=== PATIENT | male | born 1955 | race Caucasian/White ===

== ENCOUNTER 2018-01-08 09:32 | Outpatient (CLI) | payer MEDICARE, MEDICAID ==
[~2018-01-08 09:32] MED LIST: FLUT16SP20 BOTHNARES; GUAI600T45 PO
== END 2018-01-08 23:59 | disposition home or self-care (01) ==
LOC: RAD 09:32
PROVIDERS: ATTEND Student in an Organized Health Care Education/Training Program
DX: H49.21 Sixth [abducent] nerve palsy, right eye (principal)
CPT/HCPCS: 70551

== ENCOUNTER 2018-01-13 08:29 | Outpatient (CLI) | payer MEDICARE, MEDICAID | END 2018-01-13 23:59 | disposition home or self-care (01) | LOC: RAD 08:29 | PROVIDERS: ATTEND Student in an Organized Health Care Education/Training Program | DX: H49.20 Sixth [abducent] nerve palsy, unspecified eye (principal) ==

== ENCOUNTER 2018-01-16 08:19 | Outpatient (CLI) | payer MEDICARE, MEDICAID ==
[2018-01-16 09:00] LABS: ALANINE AMINOTRANSFERASE 19 U/L (12-78); ALBUMIN 3.7 G/DL (3.4-5.0); ALBUMIN/GLOBULIN RATIO 0.9 (1.1-1.5); ALKALINE PHOSPHATASE 80 IU/L (46-116); ANION GAP 7 (8-16); ASPARTATE AMINO TRANSFERASE 17 U/L (10-37); BILIRUBIN,TOTAL 0.3 MG/DL (0.1-1.0); BLOOD UREA NITROGEN 21 MG/DL (7-18); BUN/CREATININE RATIO 18.3 (5.4-32.0); CALCIUM 9.6 MG/DL (8.5-10.1); CHLORIDE 109 MMOL/L (99-107); CREATININE 1.15 MG/DL (0.60-1.10); GLUCOSE 158 MG/DL (70-104); POTASSIUM 4.5 MMOL/L (3.5-5.1); SODIUM 142 MMOL/L (135-145); TOTAL CARBON DIOXIDE 26.5 MMOL/L (24-32); eGFR 64 ML/MIN
[2018-01-16] MEDS ORDERED: gadopentetate dimeglumine 7.5 MMOL/15 ML syringe ONE (10:35)
== END 2018-01-16 23:59 | disposition home or self-care (01) ==
LOC: RAD 08:19
PROVIDERS: ATTEND Student in an Organized Health Care Education/Training Program
DX: H49.21 Sixth [abducent] nerve palsy, right eye (principal); I10 Essential (primary) hypertension
CPT/HCPCS: 36415; 70553; 80053; A9579

== ENCOUNTER 2018-03-27 08:37 | Emergency (ER) | payer MEDICARE, MEDICAID ==
[~2018-03-27] VITALS: Ht 188 cm; Wt 113.0 kg
[2018-03-27] MEDS ORDERED: acetaminophen 325mg tablet PO ONE (08:45)
[2018-03-27 10:10] VITALS: BP 140/86
== END 2018-03-27 10:08 | disposition home or self-care (01) ==
LOC: ER 08:37
DX: M25.552 Pain in left hip (principal); G89.29 Other chronic pain; Z79.899 Other long term (current) drug therapy; W18.39XA Other fall on same level, initial encounter; Y93.89 Activity, other specified; Y92.89 Other specified places as the place of occurrence of the external cause; Y99.8 Other external cause status
CPT/HCPCS: 73502; 82948; 99284

== ENCOUNTER 2018-04-19 20:20 | Emergency (ER) | payer MEDICARE, MEDICAID ==
[~2018-04-19] VITALS: Ht 185.4 cm; Wt 101.0 kg
[2018-04-19 20:28] VITALS: BP 166/94
[2018-04-19 22:07] LABS: CLARITY,URINE CLOUDY (Clear); COLOR,URINE YELLOW (Yellow); GLUCOSE, URINE NEGATIVE (Neg); KETONES,URINE NEGATIVE (Neg); LEUKOCYTE ESTERASE ,URINE LARGE (Neg); NITRITES, URINE NEGATIVE (Neg); OCCULT BLOOD,URINE TRACE-INTACT (Neg); PH,URINE 6.5 (4.8-8.0); PROTEIN,URINE 30 mg/dl (Neg); UROBILINOGEN,URINE 0.2 E.U/dL (0.2-1.0)
[2018-04-19 22:09] LABS: UA COLLECTION TYPE CLN CATCH MIDSTREAM
[2018-04-19 22:18] LABS: BACTERIA,URINE 3+ /HPF (Neg); MUCUS STRANDS NONE SEEN /LPF (Neg); RBC,URINE 0-2 /HPF (0-2); SQUAMOUS EPITHELIAL CELL,UR FEW /LPF (FEW); WBC,URINE 30-50 /HPF (0-4)
[2018-04-19] MEDS ORDERED: CEPH-572 PO (23:00)
== END 2018-04-19 22:14 | disposition home or self-care (01) ==
LOC: ER 20:21
DX: N39.0 Urinary tract infection, site not specified (principal); N35.9 Urethral stricture, unspecified; G89.29 Other chronic pain; Z88.8 Allergy status to other drugs, medicaments and biological substances; Z79.899 Other long term (current) drug therapy
CPT/HCPCS: 36415; 72170; 81001; 87077; 87088; 87186; 87491; 99285

== ENCOUNTER 2020-06-20 12:51 | Outpatient (CLI) | payer MEDICARE, MEDICAID | END 2020-06-20 23:59 | disposition home or self-care (01) | LOC: VAS 12:51 | PROVIDERS: ATTEND Nurse Practitioner | DX: M79.604 Pain in right leg (principal); R59.0 Localized enlarged lymph nodes | CPT/HCPCS: 93971 ==

== ENCOUNTER 2021-06-22 21:54 | Inpatient (IN) | payer MEDICARE, MEDICAID ==
[~2021-06-22] VITALS: Ht 188 cm; Wt 113.6 kg
[2021-06-22] MEDS ORDERED: normal saline 1000ML IV soln IVB ONE (22:25)
[2021-06-22 22:58] LABS: BASOPHILS # (AUTO) 0.1 X10'3 (0-0.2); BASOPHILS % (AUTO) 0.3 % (0-1); EOSINOPHILS % (AUTO) 0 % (0-6); HEMOGLOBIN 13.1 g/dl (14.0-17.9); LYMPHOCYTES # (AUTO) 0.4 X10'3 (1.1-4.8); LYMPHOCYTES % (AUTO) 2.1 % (21-51); MEAN CORPUSCULAR HGB CONC 33.6 g/dL (33.0-36.5); MEAN CORPUSCULAR VOLUME 86.3 FL (78-98); MONOCYTES # (AUTO) 1.4 X10'3 (0-0.9); MONOCYTES % (AUTO) 7.1 % (2-12); NEUTROPHILS # (AUTO) 18.4 X10'3 (1.8-7.7); NEUTROPHILS % (AUTO) 90.5 % (42-75); PLATELET COUNT 271 X10'3 (140-440); RED BLOOD COUNT 4.52 X10'6 (4.70-6.10); RED CELL DISTRIBUTION WIDTH 14.5 % (11.5-14.5); WHITE BLOOD COUNT 20.3 X10'3 (4.5-11.0)
[2021-06-22 23:10] LABS: AMMONIA < 10 UMOL/L (11-32)
[2021-06-22 23:15] LABS: LACTIC SEPSIS 2.2 MMOL/L (0.4-2.0)
[2021-06-22 23:28] LABS: ALANINE AMINOTRANSFERASE 21 U/L (12-78); ALBUMIN 2.6 G/DL (3.4-5.0); ALBUMIN/GLOBULIN RATIO 0.5 (1.1-1.5); ALKALINE PHOSPHATASE 126 IU/L (46-116); ANION GAP 12 (8-16); ASPARTATE AMINO TRANSFERASE 17 U/L (10-37); BILIRUBIN,TOTAL 0.7 MG/DL (0.1-1.0); BLOOD UREA NITROGEN 47 MG/DL (7-18); BUN/CREATININE RATIO 23.2 (5.4-32.0); CALCIUM 10.1 MG/DL (8.5-10.1); CHLORIDE 96 MMOL/L (99-107); CREATININE 2.03 MG/DL (0.60-1.10); GLUCOSE 449 MG/DL (70-104); SODIUM 129 MMOL/L (135-145); TOTAL CARBON DIOXIDE 21.1 MMOL/L (24-32); TOTAL PROTEIN 8.1 G/DL (6.4-8.2); eGFR 33 ML/MIN
[2021-06-22 23:31] LABS: ETHANOL < 0.010 GM/DL (0.0-0.010); TROPONIN I < 0.04 NG/ML (0.0-0.05)
[2021-06-22 23:50] LABS: CLARITY,URINE CLOUDY (Clear); COLOR,URINE YELLOW (Yellow); GLUCOSE, URINE >=1000 mg/dl (Neg); KETONES,URINE NEGATIVE (Neg); LEUKOCYTE ESTERASE ,URINE MODERATE (Neg); NITRITES, URINE NEGATIVE (Neg); OCCULT BLOOD,URINE MODERATE (Neg); PROTEIN,URINE 100 mg/dl (Neg); UROBILINOGEN,URINE 0.2 E.U/dL (0.2-1.0)
[2021-06-22 23:54] LABS: UA COLLECTION TYPE URINAL
[2021-06-23 00:04] LABS: BACTERIA,URINE 2+ /HPF (Neg); MUCUS STRANDS MODERATE /LPF (Neg); SQUAMOUS EPITHELIAL CELL,UR MODERATE /LPF (FEW)
--- NOTE | 2021-06-23 01:26 | NUR ---
pt moved from Bed 3 to hallway 16 and now to Bed 8. Remains pleasantly confused. 2 liters ns infused. vss. Pt with no compaints.
[2021-06-23] MEDS ORDERED: UNABLE TO OBTAIN (01:52)
--- NOTE | 2021-06-23 01:52 | NUR ---
3 hr trop drawn. pt voidingin urinal 400 cc's. temp 100.6
--- NOTE | 2021-06-23 02:11 | NUR ---
pt had episode of stool incontinence (medium soft formed brown). Pt cleaned and changed and dry flow pad placed under patient. skin intact. pt able to assist with turning.
--- NOTE | 2021-06-23 02:11 | NUR ---
pt had bm all over himself. Given a bed bath and new sheets.
[2021-06-23 04:21] LABS: C-REACTIVE PROTEIN 23.16 MG/DL (0.0-0.5); CREATINE KINASE 222 U/L (39-308); MAGNESIUM 1.7 MG/DL (1.5-2.4); PHOSPHORUS 3.4 MG/DL (2.3-4.5)
[2021-06-23] MEDS ORDERED: thiamine 100mg tablet PO ONE (04:30)
[2021-06-23] MEDS ORDERED: insulin regular, human 10 units/0.1 ml syringe SQ ONE (04:30)
[2021-06-23] MEDS ORDERED: CefTRIAXone/D5W-Rocephin 1gm 50 ML IV ONE (04:30)
[2021-06-23] MEDS ORDERED: folic acid 1mg tablet PO ONE (04:30)
[2021-06-23] MEDS ORDERED: LITH300C PO ×2 (04:35)
[2021-06-23] MEDS ORDERED: GLIP10TA11 PO (04:35)
[2021-06-23] MEDS ORDERED: ASPI-1265 PO (04:35)
[2021-06-23] MEDS ORDERED: LINA5TAB4 PO (04:35)
[2021-06-23] MEDS ORDERED: LISI10TA27 PO (04:35)
[2021-06-23] MEDS ORDERED: VENL75CA61 PO (04:35)
[2021-06-23 04:44] LABS: HEMOGLOBIN A1C 12.3 % (4.5-6.2)
[2021-06-23] MEDS ORDERED: morphine 2 MG/ML inj. syringe IV PRN ×2 (04:55)
[2021-06-23] MEDS ORDERED: loperamide 2mg capsule PO ONE (04:55)
[2021-06-23] MEDS ORDERED: diphenhydrAMINE 25mg capsule PO PRN (04:55)
[2021-06-23] MEDS ORDERED: glucagon, human recombinant 1mg kit SUBCUT PRN (04:55)
[2021-06-23] MEDS ORDERED: MESSAGE TO PHARMACY PO ONE (04:55)
[2021-06-23] MEDS ORDERED: ondansetron/PF 4mg/2ml inj IV PRN (04:55)
[2021-06-23] MEDS ORDERED: mag hydrox/Alum hydrox/simeth 30ml oral suspension PO PRN ×2 (04:55)
[2021-06-23] MEDS ORDERED: bisacodyl 10mg suppository rectal RC PRN (04:55)
[2021-06-23] MEDS ORDERED: dextrose ORAL solution 15 GM/59 ML bottle PO PRN (04:55)
[2021-06-23] MEDS ORDERED: HYDROmorphone inj. 0.5 MG/0.5 ML DISP.SYRIN IV PRN (04:55)
[2021-06-23] MEDS ORDERED: diphenhydrAMINE 50 mg/ml inj IV PRN (04:55)
[2021-06-23] MEDS ORDERED: dextrose 50%-water 50ml dispensing syringe IV PRN ×2 (04:55)
[2021-06-23] MEDS ORDERED: cloNIDine 0.1 MG/24 HOUR patch (7 day patch) TD SCH (04:55)
[2021-06-23] MEDS ORDERED: acetaminophen 325mg tablet PO PRN ×2 (04:55)
[2021-06-23] MEDS ORDERED: HYDROcodone/acetaminophen 5mg/325mg tablet PO PRN (04:55)
[2021-06-23] MEDS ORDERED: ondansetron 4mg rapidly disintigrating tab PO PRN (04:55)
[2021-06-23] MEDS ORDERED: LORazepam 2 mg/ml vial IV PRN (04:55)
[2021-06-23] MEDS ORDERED: acetaminophen 650mg rectal suppository RC PRN (04:55)
[2021-06-23] MEDS: normal saline 1000ml 1,000 ML IV SCH ×4 (05:16→22:45)
--- NOTE | 2021-06-23 07:00 | NUR ---
Patient up in rolling chair in room, naked, pat had urinated on floor, fecal residue noted on sheets, chair, and floor. Hygiene provided, linen changed, patient redirected to stay in bed, able to follow commands, oriented X3. All safety measures in place, patient within sight of staff at all times.
[2021-06-23] MEDS: folic acid 1mg/0.2ml inj IV SCH (08:00)
[2021-06-23] MEDS ORDERED: folic acid inj. 2 MG, thiamine inj. 100 MG, MVI, adult No.4 with vit. K 10 ML in dextro... IV SCH ×4 (08:00)
[2021-06-23] MEDS: docusate sod 100mg capsule PO SCH ×2 (08:00→20:00)
[2021-06-23] MEDS: thiamine inj. 100 MG in normal saline 100ml IV soln 100 ML IV SCH (08:00)
[2021-06-23 08:21] LABS: URINE AMPHETAMINE SCREEN NEGATIVE (Neg); URINE BARBITUATE SCREEN NEGATIVE (Neg); URINE BENZODIAZEPINES SCREEN NEGATIVE (Neg); URINE CANNABINOID SCREEN NEGATIVE (Neg); URINE COCAINE SCREEN NEGATIVE (Neg); URINE METHADONE SCREEN NEGATIVE (Neg); URINE OPIATE SCREEN NEGATIVE (Neg); URINE PHENCYCLIDINE SCREEN NEGATIVE (Neg)
[2021-06-23] MEDS ORDERED: potassium Cl 40MEQ/1/2NS 520ml 520 ML IV PRN (08:40)
[2021-06-23] MEDS ORDERED: magnesium Cl slow-release 64mg tablet PO PRN (08:40)
[2021-06-23] MEDS ORDERED: magnesium 4gm in 100ml NS 100 ML IV PRN (08:40)
[2021-06-23] MEDS ORDERED: potassium Cl 20 mEq SR tablet PO PRN ×2 (08:40)
[2021-06-23] MEDS: aspirin 81mg tab.chew PO SCH (09:52)
[2021-06-23] MEDS: venlafaxine XR 75mg capsule (Q24H) PO SCH (09:52)
[2021-06-23] MEDS: heparin, porcine 5000 units/ml vial SQ SCH ×2 (09:53→21:19)
[2021-06-23] MEDS: lithium carbonate 150mg capsule PO SCH ×2 (09:53→22:19)
[2021-06-23] MEDS: pantoprazole 40mg Tablet.DR PO SCH (09:53)
--- NOTE | 2021-06-23 11:36 | NUR ---
Pt brother Mark Williamson [phone] called and states that he can fill in with Pt Med History. And to be called if needed.
--- NOTE | 2021-06-23 14:56 | NUR ---
Dr Roy paged for diet order at this time.
[2021-06-23 19:30] VITALS: BP 108/69
[2021-06-23] MEDS: K and/or MAG REPLACEMENT MC SCH (20:00)
[2021-06-23] MEDS ORDERED: temazepam 15mg capsule PO PRN (21:00)
[2021-06-23] MEDS: HYDROcodone/acetaminophen 10/325mg tab PO PRN (21:19)
[2021-06-23 22:00] VITALS: BP 122/68
[2021-06-23] MEDS: insulin Lispro (HumaLOG) vial - multi-dose SQ SCH (22:28)
[2021-06-23] MEDS: insulin glargine (Lantus) pen - multi-dose SQ SCH (22:31)
[2021-06-24 02:00] VITALS: BP 124/71
[2021-06-24] MEDS: HYDROcodone/acetaminophen 10/325mg tab PO PRN ×2 (04:47→19:30)
[2021-06-24 07:17] LABS: BASOPHILS % (AUTO) 0.2 % (0-1); EOSINOPHILS # (AUTO) 0.2 X10'3 (0-0.9); EOSINOPHILS % (AUTO) 1.3 % (0-6); HEMATOCRIT 35.4 % (42.0-52.0); HEMOGLOBIN 11.8 g/dl (14.0-17.9); LYMPHOCYTES # (AUTO) 0.7 X10'3 (1.1-4.8); MEAN CORPUSCULAR HEMOGLOBIN 29.1 PG (27.0-31.0); MEAN CORPUSCULAR HGB CONC 33.3 g/dL (33.0-36.5); MEAN CORPUSCULAR VOLUME 87.3 FL (78-98); MEAN PLATELET VOLUME 8.4 FL (7.4-10.4); MONOCYTES # (AUTO) 1.2 X10'3 (0-0.9); MONOCYTES % (AUTO) 7.9 % (2-12); NEUTROPHILS # (AUTO) 12.5 X10'3 (1.8-7.7); NEUTROPHILS % (AUTO) 85.6 % (42-75); PLATELET COUNT 228 X10'3 (140-440); RED BLOOD COUNT 4.06 X10'6 (4.70-6.10); RED CELL DISTRIBUTION WIDTH 14.6 % (11.5-14.5); WHITE BLOOD COUNT 14.6 X10'3 (4.5-11.0)
[2021-06-24 07:34] LABS: ALANINE AMINOTRANSFERASE 27 U/L (12-78); ALBUMIN 2.1 G/DL (3.4-5.0); ALBUMIN/GLOBULIN RATIO 0.4 (1.1-1.5); ALKALINE PHOSPHATASE 125 IU/L (46-116); ANION GAP 10 (8-16); ASPARTATE AMINO TRANSFERASE 19 U/L (10-37); BILIRUBIN,TOTAL 0.4 MG/DL (0.1-1.0); BLOOD UREA NITROGEN 37 MG/DL (7-18); BUN/CREATININE RATIO 26.6 (5.4-32.0); CALCIUM 9.5 MG/DL (8.5-10.1); CHLORIDE 107 MMOL/L (99-107); CHOL/HDL RATIO 7.7 (0.00-4.99); CHOLESTEROL 116 MG/DL (0-200); CREATININE 1.39 MG/DL (0.60-1.10); GLUCOSE 264 MG/DL (70-104); HDL CHOLESTEROL 15 MG/DL (35-60); LDL CHOLESTEROL 62 MG/DL (50-100); LIPASE 615 U/L (73-393); MAGNESIUM 2.3 MG/DL (1.5-2.4); PHOSPHORUS 2.2 MG/DL (2.3-4.5); POTASSIUM 4.1 MMOL/L (3.5-5.1); SODIUM 137 MMOL/L (135-145); TOTAL PROTEIN 6.9 G/DL (6.4-8.2); TRIGLYCERIDES 182 MG/DL (20-135); eGFR 51 ML/MIN
[2021-06-24] MEDS: folic acid 1mg/0.2ml inj IV SCH (08:00)
[2021-06-24] MEDS: K and/or MAG REPLACEMENT MC SCH ×2 (08:00→19:45)
[2021-06-24] MEDS: aspirin 81mg tab.chew PO SCH (08:03)
[2021-06-24] MEDS: docusate sod 100mg capsule PO SCH ×2 (08:03→23:03)
[2021-06-24] MEDS: CefTRIAXone/D5W-Rocephin 1gm 50 ML IV SCH (08:03)
[2021-06-24] MEDS: pantoprazole 40mg Tablet.DR PO SCH (08:05)
[2021-06-24] MEDS: heparin, porcine 5000 units/ml vial SQ SCH ×2 (08:05→19:30)
[2021-06-24] MEDS: thiamine inj. 100 MG in normal saline 100ml IV soln 100 ML IV SCH (08:11)
--- NOTE | 2021-06-24 08:52 | NUR ---
Noted pt with T2DM with current A1c 12.3%. 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 Pending physical assessment at this time. Pt would benefit from DM education once fully alert and oriented. Pt on a CHO controlled diet documented with 100% PO intake first meal. Currently receiving routine Thiamine and Folic acid for EtOH hx. Will continue to follow. Addendum: 06/24/21 at [address] Amended: Links added.
--- NOTE | 2021-06-24 09:47 | NUR ---
Problems reprioritized. Patient report given, questions answered & plan of care reviewed with Deepali BIRMINGHAM.
[2021-06-24 11:00] VITALS: BP 142/89
[2021-06-24] MEDS: clindamycin 300mg/D5W 50mL 50 ML IV SCH ×3 (11:29→23:54)
--- NOTE | 2021-06-24 11:45 | NUR ---
I paged For pts confusion. PAGER ID: [phone] MESSAGE: [facility], Room 3017 A, Vargas Williamson. He is so confused and pulling out the IV and condom cath. please advise . Thanks VALENCIA Palumbo [phone]
[2021-06-24] MEDS: venlafaxine XR 75mg capsule (Q24H) PO SCH (13:05)
[2021-06-24] MEDS: insulin Lispro (HumaLOG) vial - multi-dose SQ SCH ×2 (13:16→19:35)
[2021-06-24] MEDS: lithium carbonate 150mg capsule PO SCH ×2 (13:18→23:03)
[2021-06-24 18:00] VITALS: BP 135/70
[2021-06-24] MEDS: normal saline 1000ml 1,000 ML IV SCH (18:00)
--- NOTE | 2021-06-24 18:43 | NUR ---
Patient in room PCU 3012. I have received report from Deepali BIRMING[place]AM and had the opportunity to ask questions and assume patient care.
--- NOTE | 2021-06-24 18:47 | NUR ---
Problems reprioritized. Patient report given, questions answered & plan of care reviewed with VALENCIA Dumont.
[2021-06-24] MEDS: lactobacillus rhamnosus 10,000 MMU CELLS/CAPSULE PO SCH (19:29)
[2021-06-24 22:00] VITALS: BP 128/72
[2021-06-24] MEDS: insulin glargine (Lantus) pen - multi-dose SQ SCH (23:09)
[2021-06-25 02:00] VITALS: BP 135/67
[2021-06-25] MEDS: normal saline 1000ml 1,000 ML IV SCH ×2 (05:00→15:37)
[2021-06-25] MEDS: HYDROcodone/acetaminophen 10/325mg tab PO PRN ×2 (05:06→19:51)
[2021-06-25 06:12] LABS: BASOPHILS % (AUTO) 0.2 % (0-1); EOSINOPHILS # (AUTO) 0.3 X10'3 (0-0.9); EOSINOPHILS % (AUTO) 2.3 % (0-6); HEMATOCRIT 36.5 % (42.0-52.0); HEMOGLOBIN 12.1 g/dl (14.0-17.9); LYMPHOCYTES # (AUTO) 0.7 X10'3 (1.1-4.8); LYMPHOCYTES % (AUTO) 4.9 % (21-51); MEAN CORPUSCULAR HEMOGLOBIN 29.3 PG (27.0-31.0); MEAN CORPUSCULAR VOLUME 88.7 FL (78-98); MEAN PLATELET VOLUME 7.9 FL (7.4-10.4); MONOCYTES # (AUTO) 1.2 X10'3 (0-0.9); MONOCYTES % (AUTO) 7.7 % (2-12); NEUTROPHILS # (AUTO) 12.8 X10'3 (1.8-7.7); NEUTROPHILS % (AUTO) 84.9 % (42-75); PLATELET COUNT 275 X10'3 (140-440); RED BLOOD COUNT 4.12 X10'6 (4.70-6.10); RED CELL DISTRIBUTION WIDTH 14.9 % (11.5-14.5)
--- NOTE | 2021-06-25 06:28 | NUR ---
Patient in room PCU 3012. I have received report from NIEVES BIRMINGHAM and had the opportunity to ask questions and assume patient care.
[2021-06-25 06:49] LABS: ALANINE AMINOTRANSFERASE 36 U/L (12-78); ALBUMIN 2.1 G/DL (3.4-5.0); ALBUMIN/GLOBULIN RATIO 0.4 (1.1-1.5); ALKALINE PHOSPHATASE 127 IU/L (46-116); ANION GAP 9 (8-16); ASPARTATE AMINO TRANSFERASE 21 U/L (10-37); BILIRUBIN,TOTAL 0.4 MG/DL (0.1-1.0); BLOOD UREA NITROGEN 30 MG/DL (7-18); BUN/CREATININE RATIO 21.3 (5.4-32.0); CALCIUM 9.6 MG/DL (8.5-10.1); CHLORIDE 112 MMOL/L (99-107); CREATININE 1.41 MG/DL (0.60-1.10); GLUCOSE 134 MG/DL (70-104); LIPASE 124 U/L (73-393); MAGNESIUM 2.3 MG/DL (1.5-2.4); PHOSPHORUS 2.9 MG/DL (2.3-4.5); POTASSIUM 3.9 MMOL/L (3.5-5.1); SODIUM 144 MMOL/L (135-145); TOTAL CARBON DIOXIDE 23.3 MMOL/L (24-32); TOTAL PROTEIN 7.3 G/DL (6.4-8.2); eGFR 50 ML/MIN
[2021-06-25 07:00] VITALS: BP 143/73
--- NOTE | 2021-06-25 07:44 | NUR ---
Problems reprioritized. Patient report given, questions answered & plan of care reviewed with Marita BIRMING[place].
[2021-06-25] MEDS: K and/or MAG REPLACEMENT MC SCH ×2 (08:00→20:00)
[2021-06-25] MEDS: CefTRIAXone/D5W-Rocephin 1gm 50 ML IV SCH (08:20)
[2021-06-25] MEDS: folic acid 1mg/0.2ml inj IV SCH (08:27)
[2021-06-25] MEDS: thiamine inj. 100 MG in normal saline 100ml IV soln 100 ML IV SCH (08:27)
[2021-06-25] MEDS: venlafaxine XR 75mg capsule (Q24H) PO SCH (08:28)
[2021-06-25] MEDS: clindamycin 300mg/D5W 50mL 50 ML IV SCH ×3 (08:28→16:39)
[2021-06-25] MEDS: docusate sod 100mg capsule PO SCH ×2 (08:28→19:45)
[2021-06-25] MEDS: pantoprazole 40mg Tablet.DR PO SCH (08:28)
[2021-06-25] MEDS: lactobacillus rhamnosus 10,000 MMU CELLS/CAPSULE PO SCH ×2 (08:28→19:46)
[2021-06-25] MEDS: lithium carbonate 150mg capsule PO SCH ×2 (08:28→19:47)
[2021-06-25] MEDS: heparin, porcine 5000 units/ml vial SQ SCH ×2 (08:29→19:45)
[2021-06-25] MEDS: aspirin 81mg tab.chew PO SCH (08:29)
[2021-06-25 11:00] VITALS: BP 109/64
[2021-06-25] MEDS: insulin Lispro (HumaLOG) vial - multi-dose SQ SCH ×3 (13:43→21:35)
[2021-06-25 15:00] VITALS: BP 124/63
--- NOTE | 2021-06-25 18:51 | NUR ---
Problems reprioritized. Patient report given, questions answered & plan of care reviewed with DANA BIRMINGHAM.
--- NOTE | 2021-06-25 18:51 | NUR ---
Patient in room U 3012. I have received report from VALENCIA ALEX and had the opportunity to ask questions and assume patient care. Addendum: 06/25/21 at 1852 by Lulú Alarcon RN Amended: Links added.
[2021-06-25 19:00] VITALS: BP 144/75
[2021-06-25] MEDS: cyclobenzaprine 10mg tablet PO PRN (19:45)
[2021-06-25] MEDS: insulin glargine (Lantus) pen - multi-dose SQ SCH (21:34)
[2021-06-25 22:21] VITALS: BP 126/69
[2021-06-26] MEDS: clindamycin 300mg/D5W 50mL 50 ML IV SCH (00:45)
--- NOTE | 2021-06-26 00:48 | NUR ---
PT RESTING WITHOUT CHANGES.
[2021-06-26] MEDS: normal saline 1000ml 1,000 ML IV SCH (01:37)
[2021-06-26 03:42] VITALS: BP 148/76
--- NOTE | 2021-06-26 04:04 | NUR ---
RESTING EYES CLOSED APPEARS COMFORTABLE. NO CHANGES.
[2021-06-26 06:00] VITALS: BP 172/86
--- NOTE | 2021-06-26 06:18 | NUR ---
Problems reprioritized. Patient report given, questions answered & plan of care reviewed with VALENCIA ROBLERO. Addendum: 06/26/21 at 0618 by Lulú Alarcon RN Amended: Links added.
--- NOTE | 2021-06-26 06:48 | NUR ---
Patient in room PCU 3012. I have received report from Lulú BIRMINGHAM and had the opportunity to ask questions and assume patient care.
[2021-06-26 07:40] LABS: BASOPHILS % (AUTO) 0.3 % (0-1); EOSINOPHILS # (AUTO) 0.3 X10'3 (0-0.9); EOSINOPHILS % (AUTO) 1.9 % (0-6); HEMATOCRIT 40.6 % (42.0-52.0); LYMPHOCYTES # (AUTO) 0.9 X10'3 (1.1-4.8); LYMPHOCYTES % (AUTO) 6.2 % (21-51); MEAN CORPUSCULAR HEMOGLOBIN 29.1 PG (27.0-31.0); MEAN PLATELET VOLUME 8.2 FL (7.4-10.4); MONOCYTES # (AUTO) 1.4 X10'3 (0-0.9); MONOCYTES % (AUTO) 9.4 % (2-12); NEUTROPHILS # (AUTO) 12.6 X10'3 (1.8-7.7); NEUTROPHILS % (AUTO) 82.2 % (42-75); PLATELET COUNT 276 X10'3 (140-440); RED BLOOD COUNT 4.46 X10'6 (4.70-6.10); RED CELL DISTRIBUTION WIDTH 15.3 % (11.5-14.5); WHITE BLOOD COUNT 15.4 X10'3 (4.5-11.0)
[2021-06-26] MEDS: K and/or MAG REPLACEMENT MC SCH ×2 (08:00→20:00)
[2021-06-26 08:04] LABS: ALANINE AMINOTRANSFERASE 37 U/L (12-78); ALBUMIN 1.9 G/DL (3.4-5.0); ALBUMIN/GLOBULIN RATIO 0.4 (1.1-1.5); ALKALINE PHOSPHATASE 139 IU/L (46-116); ANION GAP 10 (8-16); ASPARTATE AMINO TRANSFERASE 22 U/L (10-37); BILIRUBIN,TOTAL 0.4 MG/DL (0.1-1.0); BLOOD UREA NITROGEN 23 MG/DL (7-18); BUN/CREATININE RATIO 17.4 (5.4-32.0); CALCIUM 9.8 MG/DL (8.5-10.1); CHLORIDE 119 MMOL/L (99-107); CREATININE 1.32 MG/DL (0.60-1.10); GLUCOSE 138 MG/DL (70-104); LIPASE 80 U/L (73-393); MAGNESIUM 2.4 MG/DL (1.5-2.4); PHOSPHORUS 2.8 MG/DL (2.3-4.5); POTASSIUM 3.9 MMOL/L (3.5-5.1); SODIUM 151 MMOL/L (135-145); TOTAL CARBON DIOXIDE 22.5 MMOL/L (24-32); TOTAL PROTEIN 7.3 G/DL (6.4-8.2); eGFR 54 ML/MIN
[2021-06-26] MEDS: folic acid 1mg/0.2ml inj IV SCH (09:48)
[2021-06-26] MEDS: thiamine inj. 100 MG in normal saline 100ml IV soln 100 ML IV SCH (09:48)
[2021-06-26] MEDS: lactobacillus rhamnosus 10,000 MMU CELLS/CAPSULE PO SCH ×2 (09:51→22:02)
[2021-06-26] MEDS: pantoprazole 40mg Tablet.DR PO SCH (09:51)
[2021-06-26] MEDS: venlafaxine XR 75mg capsule (Q24H) PO SCH (09:51)
[2021-06-26] MEDS: docusate sod 100mg capsule PO SCH ×2 (09:51→22:02)
[2021-06-26] MEDS: lithium carbonate 150mg capsule PO SCH ×2 (09:51→22:02)
[2021-06-26] MEDS: cyclobenzaprine 10mg tablet PO PRN (09:51)
[2021-06-26] MEDS: aspirin 81mg tab.chew PO SCH (09:51)
[2021-06-26] MEDS: heparin, porcine 5000 units/ml vial SQ SCH ×2 (09:52→22:02)
[2021-06-26] MEDS: CefTRIAXone/D5W-Rocephin 1gm 50 ML IV SCH (10:05)
[2021-06-26] MEDS: dextrose 5%-1/4 normal saline 1,000 ML IV SCH ×2 (10:05→21:59)
[2021-06-26 10:14] VITALS: BP 130/83
[2021-06-26] MEDS: insulin Lispro (HumaLOG) vial - multi-dose SQ SCH ×2 (13:52→18:02)
[2021-06-26 15:00] VITALS: BP 126/77
--- NOTE | 2021-06-26 17:10 | NUR ---
Patient has been sleeping most of the time, breathing normally. Patient can wake up upon command, still been confused but not agitated. When he is awake, occasionally he will try to dangle one of his legs on the side and sometimes will attempt to touch the IV. Patient can be redirected easily. Patient did not need restraints from the beginning of my shift until this time. Sitter is still recommended at this time.
[2021-06-26 18:00] VITALS: BP 116/79
--- NOTE | 2021-06-26 18:12 | NUR ---
Problems reprioritized. Patient report given, questions answered & plan of care reviewed with Carrie BIRM[place].
--- NOTE | 2021-06-26 18:40 | NUR ---
I HAVE RECIEVED REPORT. I HAVE ASSUMED CARE OF THE PATIENT.
[2021-06-26 22:00] VITALS: BP 148/78
[2021-06-26] MEDS: insulin glargine (Lantus) pen - multi-dose SQ SCH (22:25)
--- NOTE | 2021-06-27 03:00 | NUR ---
PATIENT REFUSED 0200 VITALS.
[2021-06-27] MEDS: dextrose 5%-1/4 normal saline 1,000 ML IV SCH (04:35)
[2021-06-27 06:00] VITALS: BP 159/81
[2021-06-27 06:13] LABS: BASOPHILS # (AUTO) 0.1 X10'3 (0-0.2); BASOPHILS % (AUTO) 0.4 % (0-1); EOSINOPHILS # (AUTO) 0.2 X10'3 (0-0.9); EOSINOPHILS % (AUTO) 1.1 % (0-6); HEMATOCRIT 36.8 % (42.0-52.0); HEMOGLOBIN 12.2 g/dl (14.0-17.9); LYMPHOCYTES # (AUTO) 1.1 X10'3 (1.1-4.8); LYMPHOCYTES % (AUTO) 7.6 % (21-51); MEAN CORPUSCULAR HEMOGLOBIN 29.2 PG (27.0-31.0); MEAN CORPUSCULAR HGB CONC 33.1 g/dL (33.0-36.5); MEAN CORPUSCULAR VOLUME 88.3 FL (78-98); MEAN PLATELET VOLUME 7.8 FL (7.4-10.4); MONOCYTES # (AUTO) 1.3 X10'3 (0-0.9); MONOCYTES % (AUTO) 9.6 % (2-12); NEUTROPHILS # (AUTO) 11.4 X10'3 (1.8-7.7); NEUTROPHILS % (AUTO) 81.3 % (42-75); PLATELET COUNT 355 X10'3 (140-440); RED BLOOD COUNT 4.17 X10'6 (4.70-6.10); RED CELL DISTRIBUTION WIDTH 14.9 % (11.5-14.5)
[2021-06-27 06:32] LABS: ALANINE AMINOTRANSFERASE 35 U/L (12-78); ALBUMIN 1.7 G/DL (3.4-5.0); ALBUMIN/GLOBULIN RATIO 0.3 (1.1-1.5); ALKALINE PHOSPHATASE 128 IU/L (46-116); ANION GAP 11 (8-16); ASPARTATE AMINO TRANSFERASE 17 U/L (10-37); BILIRUBIN,TOTAL 0.5 MG/DL (0.1-1.0); BLOOD UREA NITROGEN 20 MG/DL (7-18); BUN/CREATININE RATIO 16.4 (5.4-32.0); CALCIUM 10.4 MG/DL (8.5-10.1); CHLORIDE 118 MMOL/L (99-107); CREATININE 1.22 MG/DL (0.60-1.10); GLUCOSE 262 MG/DL (70-104); LIPASE 54 U/L (73-393); MAGNESIUM 2.2 MG/DL (1.5-2.4); PHOSPHORUS 2.1 MG/DL (2.3-4.5); POTASSIUM 3.5 MMOL/L (3.5-5.1); SODIUM 151 MMOL/L (135-145); TOTAL CARBON DIOXIDE 22.3 MMOL/L (24-32); TOTAL PROTEIN 7.3 G/DL (6.4-8.2); eGFR 59 ML/MIN
[2021-06-27] MEDS: K and/or MAG REPLACEMENT MC SCH ×2 (08:00→20:00)
[2021-06-27] MEDS: thiamine inj. 100 MG in normal saline 100ml IV soln 100 ML IV SCH (08:12)
[2021-06-27] MEDS: CefTRIAXone/D5W-Rocephin 1gm 50 ML IV SCH (08:12)
[2021-06-27] MEDS: lithium carbonate 150mg capsule PO SCH ×2 (08:13→20:36)
[2021-06-27] MEDS: heparin, porcine 5000 units/ml vial SQ SCH ×2 (08:13→20:35)
[2021-06-27] MEDS: docusate sod 100mg capsule PO SCH ×2 (08:13→20:34)
[2021-06-27] MEDS: lactobacillus rhamnosus 10,000 MMU CELLS/CAPSULE PO SCH ×2 (08:13→20:34)
[2021-06-27] MEDS: pantoprazole 40mg Tablet.DR PO SCH (08:13)
[2021-06-27] MEDS: aspirin 81mg tab.chew PO SCH (08:13)
[2021-06-27] MEDS: venlafaxine XR 75mg capsule (Q24H) PO SCH (08:14)
[2021-06-27] MEDS: insulin Lispro (HumaLOG) vial - multi-dose SQ SCH ×3 (10:05→19:24)
[2021-06-27 12:00] VITALS: BP 155/79
[2021-06-27] MEDS: dextrose 5%-water 1,000 ML IV SCH ×2 (14:26→18:35)
[2021-06-27] MEDS: folic acid 1mg/0.2ml inj IV SCH (15:46)
[2021-06-27 18:00] VITALS: BP 136/78
--- NOTE | 2021-06-27 18:30 | NUR ---
Patient in room PCU 3012. I have received report from COURT BIRMINGHAM and had the opportunity to ask questions and assume patient care.
[2021-06-27] MEDS: insulin glargine (Lantus) pen - multi-dose SQ SCH (21:33)
[2021-06-27 22:00] VITALS: BP 147/75
[2021-06-28 02:00] VITALS: BP 148/78
[2021-06-28] MEDS: dextrose 5%-water 1,000 ML IV SCH ×2 (04:15→19:14)
[2021-06-28 06:00] VITALS: BP 155/80
--- NOTE | 2021-06-28 06:28 | NUR ---
Problems reprioritized. Patient report given, questions answered & plan of care reviewed with NATALIYA BIRMINGHAM.
[2021-06-28] MEDS: pantoprazole 40mg Tablet.DR PO SCH (07:30)
[2021-06-28] MEDS: folic acid 1mg/0.2ml inj IV SCH (07:36)
[2021-06-28] MEDS: thiamine inj. 100 MG in normal saline 100ml IV soln 100 ML IV SCH (07:36)
[2021-06-28] MEDS: aspirin 81mg tab.chew PO SCH (07:39)
[2021-06-28] MEDS: lactobacillus rhamnosus 10,000 MMU CELLS/CAPSULE PO SCH ×2 (07:39→19:14)
[2021-06-28] MEDS: docusate sod 100mg capsule PO SCH ×2 (07:39→19:14)
[2021-06-28] MEDS: lithium carbonate 150mg capsule PO SCH ×2 (07:39→20:53)
[2021-06-28] MEDS: venlafaxine XR 75mg capsule (Q24H) PO SCH (07:39)
[2021-06-28] MEDS: CefTRIAXone 2gm/D5W 50ml BAG 50 ML IV SCH (07:40)
[2021-06-28] MEDS: heparin, porcine 5000 units/ml vial SQ SCH ×2 (07:40→19:13)
[2021-06-28] MEDS: K and/or MAG REPLACEMENT MC SCH ×2 (08:00→19:25)
[2021-06-28 08:19] LABS: BASOPHILS # (AUTO) 0.1 X10'3 (0-0.2); BASOPHILS % (AUTO) 0.4 % (0-1); EOSINOPHILS # (AUTO) 0.3 X10'3 (0-0.9); HEMATOCRIT 40.8 % (42.0-52.0); HEMOGLOBIN 13.1 g/dl (14.0-17.9); LYMPHOCYTES # (AUTO) 1.4 X10'3 (1.1-4.8); LYMPHOCYTES % (AUTO) 9.2 % (21-51); MEAN CORPUSCULAR HEMOGLOBIN 28.6 PG (27.0-31.0); MEAN CORPUSCULAR VOLUME 89.2 FL (78-98); MEAN PLATELET VOLUME 7.9 FL (7.4-10.4); MONOCYTES # (AUTO) 1.1 X10'3 (0-0.9); MONOCYTES % (AUTO) 7.1 % (2-12); NEUTROPHILS # (AUTO) 12.4 X10'3 (1.8-7.7); NEUTROPHILS % (AUTO) 81.3 % (42-75); PLATELET COUNT 401 X10'3 (140-440); RED BLOOD COUNT 4.57 X10'6 (4.70-6.10); RED CELL DISTRIBUTION WIDTH 15.5 % (11.5-14.5); WHITE BLOOD COUNT 15.2 X10'3 (4.5-11.0)
[2021-06-28 08:56] LABS: ALANINE AMINOTRANSFERASE 46 U/L (12-78); ALBUMIN 1.8 G/DL (3.4-5.0); ALBUMIN/GLOBULIN RATIO 0.3 (1.1-1.5); ALKALINE PHOSPHATASE 144 IU/L (46-116); ANION GAP 11 (8-16); ASPARTATE AMINO TRANSFERASE 25 U/L (10-37); BILIRUBIN,TOTAL 0.6 MG/DL (0.1-1.0); BLOOD UREA NITROGEN 23 MG/DL (7-18); BUN/CREATININE RATIO 15.1 (5.4-32.0); CALCIUM 10.7 MG/DL (8.5-10.1); CHLORIDE 120 MMOL/L (99-107); CREATININE 1.52 MG/DL (0.60-1.10); GLUCOSE 241 MG/DL (70-104); LIPASE < 50 U/L (73-393); MAGNESIUM 2.3 MG/DL (1.5-2.4); PHOSPHORUS 2.7 MG/DL (2.3-4.5); POTASSIUM 3.7 MMOL/L (3.5-5.1); TOTAL PROTEIN 7.4 G/DL (6.4-8.2); eGFR 46 ML/MIN
[2021-06-28] MEDS: insulin Lispro (HumaLOG) vial - multi-dose SQ SCH ×3 (09:07→19:22)
[2021-06-28 09:08] LABS: SODIUM 156 MMOL/L (135-145)
--- NOTE | 2021-06-28 09:54 | NUR ---
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 Pt A/O x 1 and confused per physical assessment, DM education remains deferred at this time. Pt on CHO controlled diet initially with 75-100% PO intake down to 0% with refusals though appears to be slowly improving with average 50% PO intake 06/27. Pt documented to be receiving assistance with meals as of dinner 06/26. D/w dietary to chop meat to further assist with meals. Noted pt with an elevated serum Na, pt started on D5 at 100 mL/hr which is providing 408 kcal/day. LBM 06/24 receiving routine bowel care with PRN bowel care available. D/w dietary to send power pudding with next meal to further assist with bowel regularity. Pt continues receiving routine Thiamine and Folic acid for EtOH hx. Will continue to follow and monitor need for further nutrition intervention. Recommendations: 1) Continue CHO controlled diet 2) Chop meat; encourage PO intake and assist with meals in view of ALOC 3) Continue routine Thiamine and Folic acid for EtOH hx 4) Routine bowel care 5) Scaled weight this admit; weekly scaled weights thereafter 6) DM education once stable/alert/oriented, A1c 12.3% Addendum: 06/28/21 at [address] Amended: Links added.
[2021-06-28 11:00] VITALS: BP 143/78
--- NOTE | 2021-06-28 13:54 | NUR ---
ATTEMPTED TO PHONE PT'S DAUGHTER AT [phone], WITHOUT SUCCESS.
[2021-06-28 15:00] VITALS: BP 146/70
--- NOTE | 2021-06-28 18:00 | NUR ---
Patient refused vital signs
--- NOTE | 2021-06-28 18:15 | NUR ---
Patient in room [address] I have received report from VALENCIA Jansen and had the opportunity to ask questions and assume patient care. Addendum: 06/29/21 at 0430 by Venecia Dubose RN Patient in room [address] I have received report from VALENCIA Hernández and had the opportunity to ask questions and assume patient care.
--- NOTE | 2021-06-28 18:42 | NUR ---
Problems reprioritized. Patient report given, questions answered & plan of care reviewed with VALENCIA WOLFF.
[2021-06-28] MEDS: insulin glargine (Lantus) pen - multi-dose SQ SCH (21:04)
[2021-06-28 22:00] VITALS: BP 142/77
--- NOTE | 2021-06-29 00:09 | NUR ---
2 RNs, including myself, attempted to initiate an IV on patient. Unsuccessful as patient appears to be dehydrated, and is combative and not following orders. Placed on restraints per MD order. Sitter at bedside. Will continue to monitor.
[2021-06-29] MEDS: dextrose 5%-water 1,000 ML IV SCH ×4 (00:11→19:41)
--- NOTE | 2021-06-29 02:00 | NUR ---
Patient refused vitals
--- NOTE | 2021-06-29 06:26 | NUR ---
Problems reprioritized. Patient report given, questions answered & plan of care reviewed with VALENCIA Magana.
--- NOTE | 2021-06-29 07:16 | NUR ---
Patient pulled IV on noc shift. multiple attempts to reestablish access by noc staff. Page sent to PICC nurse requesting assistance: Renetta Williamson [id number] pt needs IV access and has pulled multiple peripheral IVs. Multiple attempts to restart on noc shift. Can you please come try to establish access. Thank you! Izzy [phone]
[2021-06-29] MEDS: pantoprazole 40mg Tablet.DR PO SCH (07:30)
[2021-06-29] MEDS: lactobacillus rhamnosus 10,000 MMU CELLS/CAPSULE PO SCH ×2 (08:00→20:54)
[2021-06-29] MEDS: K and/or MAG REPLACEMENT MC SCH ×2 (08:00→20:00)
[2021-06-29] MEDS ORDERED: lithium carbonate 150mg capsule PO SCH (08:00)
[2021-06-29] MEDS: venlafaxine XR 75mg capsule (Q24H) PO SCH (08:00)
[2021-06-29] MEDS: insulin Lispro (HumaLOG) vial - multi-dose SQ SCH ×3 (10:03→21:14)
[2021-06-29] MEDS: CefTRIAXone 2gm/D5W 50ml BAG 50 ML IV SCH ×2 (10:32→21:21)
[2021-06-29] MEDS: thiamine inj. 100 MG in normal saline 100ml IV soln 100 ML IV SCH (10:32)
[2021-06-29] MEDS: docusate sod 100mg capsule PO SCH ×2 (10:33→20:00)
[2021-06-29] MEDS: heparin, porcine 5000 units/ml vial SQ SCH ×2 (10:33→21:26)
[2021-06-29] MEDS: folic acid 1mg/0.2ml inj IV SCH (10:33)
[2021-06-29] MEDS: amLODIPine 5mg tablet PO SCH (10:34)
[2021-06-29] MEDS: aspirin 81mg tab.chew PO SCH (10:36)
[2021-06-29 10:41] LABS: ALANINE AMINOTRANSFERASE 50 U/L (12-78); ALBUMIN 1.9 G/DL (3.4-5.0); ALBUMIN/GLOBULIN RATIO 0.3 (1.1-1.5); ALKALINE PHOSPHATASE 174 IU/L (46-116); ANION GAP 12 (8-16); ASPARTATE AMINO TRANSFERASE 27 U/L (10-37); BILIRUBIN,TOTAL 0.6 MG/DL (0.1-1.0); BLOOD UREA NITROGEN 32 MG/DL (7-18); BUN/CREATININE RATIO 17.9 (5.4-32.0); CALCIUM 11.3 MG/DL (8.5-10.1); CHLORIDE 121 MMOL/L (99-107); CREATININE 1.79 MG/DL (0.60-1.10); GLUCOSE 233 MG/DL (70-104); POTASSIUM 3.6 MMOL/L (3.5-5.1); TOTAL CARBON DIOXIDE 26.4 MMOL/L (24-32); TOTAL PROTEIN 8.1 G/DL (6.4-8.2); eGFR 38 ML/MIN
[2021-06-29 10:42] LABS: SODIUM 159 MMOL/L (135-145)
[2021-06-29 15:38] LABS: BASOPHILS % (AUTO) 0.2 % (0-1); EOSINOPHILS # (AUTO) 0.2 X10'3 (0-0.9); EOSINOPHILS % (AUTO) 1.1 % (0-6); HEMATOCRIT 40.1 % (42.0-52.0); HEMOGLOBIN 12.7 g/dl (14.0-17.9); LYMPHOCYTES # (AUTO) 1.2 X10'3 (1.1-4.8); LYMPHOCYTES % (AUTO) 7.3 % (21-51); MEAN CORPUSCULAR HEMOGLOBIN 28.6 PG (27.0-31.0); MEAN CORPUSCULAR HGB CONC 31.7 g/dL (33.0-36.5); MEAN CORPUSCULAR VOLUME 90.1 FL (78-98); MEAN PLATELET VOLUME 8.3 FL (7.4-10.4); MONOCYTES # (AUTO) 0.8 X10'3 (0-0.9); MONOCYTES % (AUTO) 4.5 % (2-12); NEUTROPHILS # (AUTO) 14.6 X10'3 (1.8-7.7); NEUTROPHILS % (AUTO) 86.9 % (42-75); PLATELET COUNT 469 X10'3 (140-440); RED BLOOD COUNT 4.46 X10'6 (4.70-6.10); RED CELL DISTRIBUTION WIDTH 15.7 % (11.5-14.5); WHITE BLOOD COUNT 16.8 X10'3 (4.5-11.0)
[2021-06-29 15:48] LABS: ALBUMIN 1.6 G/DL (3.4-5.0); ANION GAP 12 (8-16); BLOOD UREA NITROGEN 31 MG/DL (7-18); BUN/CREATININE RATIO 19.3 (5.4-32.0); CALCIUM 10.3 MG/DL (8.5-10.1); CHLORIDE 122 MMOL/L (99-107); CREATININE 1.61 MG/DL (0.60-1.10); GLUCOSE 241 MG/DL (70-104); POTASSIUM 3.5 MMOL/L (3.5-5.1); TOTAL CARBON DIOXIDE 23.2 MMOL/L (24-32); eGFR 43 ML/MIN
--- NOTE | 2021-06-29 15:50 | NUR ---
Lab phoned w/ [phone]. VALENCIA Mcintyre, notified.
[2021-06-29 15:52] LABS: SODIUM 157 MMOL/L (135-145)
[2021-06-29] MEDS ORDERED: LIDOcaine 2% 10ml TOPICAL JELLY (Urojet) MM ONE (15:55)
--- NOTE | 2021-06-29 15:58 | NUR ---
[id number] CRITICAL SODIUM 157, PAGED AWAITING CALL BACK
--- NOTE | 2021-06-29 16:01 | NUR ---
Patient in room LETA 354C. I have received report from VALENCIA GARCES FROM PCU and had the opportunity to ask questions and assume patient care.
--- NOTE | 2021-06-29 16:02 | NUR ---
Problems reprioritized. Patient report given, questions answered & plan of care reviewed with VALENCIA Mcintyre. Patient transferred to Medical/Surgical unit on a bed with all belongings and medications transferred over as well.
[2021-06-29] MEDS ORDERED: HYDROchlorothiazide 25mg tablet PO ONE (16:55)
[2021-06-29 18:00] VITALS: BP 149/80
--- NOTE | 2021-06-29 19:52 | NUR ---
Problems reprioritized. Patient report given, questions answered & plan of care reviewed with VALENCIA HO.
[2021-06-29] MEDS: lithium carbonate 150mg capsule PO SCH (21:00)
[2021-06-29] MEDS: insulin glargine (Lantus) pen - multi-dose SQ SCH (21:19)
[2021-06-29 21:23] LABS: ALBUMIN 1.6 G/DL (3.4-5.0); ANION GAP 10 (8-16); BLOOD UREA NITROGEN 33 MG/DL (7-18); BUN/CREATININE RATIO 18.9 (5.4-32.0); CHLORIDE 123 MMOL/L (99-107); CREATININE 1.75 MG/DL (0.60-1.10); GLUCOSE 356 MG/DL (70-104); POTASSIUM 3.7 MMOL/L (3.5-5.1); TOTAL CARBON DIOXIDE 22.4 MMOL/L (24-32); eGFR 39 ML/MIN
[2021-06-29 21:28] LABS: SODIUM 155 MMOL/L (135-145)
[2021-06-29 23:48] LABS: CLARITY,URINE CLEAR (Clear); COLOR,URINE YELLOW (Yellow); GLUCOSE, URINE 250 mg/dl (Neg); KETONES,URINE NEGATIVE (Neg); LEUKOCYTE ESTERASE ,URINE NEGATIVE (Neg); NITRITES, URINE NEGATIVE (Neg); OCCULT BLOOD,URINE TRACE-INTACT (Neg); PROTEIN,URINE 30 mg/dl (Neg); UROBILINOGEN,URINE 0.2 E.U/dL (0.2-1.0)
[2021-06-29 23:49] LABS: UA COLLECTION TYPE STRAIGHT CATH
[2021-06-29 23:59] LABS: BACTERIA,URINE NONE SEEN /HPF (Neg); RBC,URINE NONE SEEN /HPF (0-2); SQUAMOUS EPITHELIAL CELL,UR FEW /LPF (FEW); WBC,URINE 0-4 /HPF (0-4)
[2021-06-30 00:51] VITALS: BP 135/77
[2021-06-30 01:23] LABS: UA EOSINOPHILS NO EOS /HPF
[2021-06-30] MEDS: morphine 2 MG/ML inj. syringe IV PRN ×2 (01:54→23:04)
[2021-06-30] MEDS: dextrose 5%-water 1,000 ML IV SCH (02:27)
[2021-06-30 04:31] LABS: ALBUMIN 1.3 G/DL (3.4-5.0); ANION GAP 10 (8-16); BLOOD UREA NITROGEN 29 MG/DL (7-18); BUN/CREATININE RATIO 17.8 (5.4-32.0); CALCIUM 8.9 MG/DL (8.5-10.1); CHLORIDE 121 MMOL/L (99-107); CREATININE 1.63 MG/DL (0.60-1.10); GLUCOSE 424 MG/DL (70-104); SODIUM 152 MMOL/L (135-145); TOTAL CARBON DIOXIDE 21.5 MMOL/L (24-32); eGFR 42 ML/MIN
[2021-06-30] MEDS ORDERED: magnesium Cl slow-release 64mg tablet PO PRN (04:45)
[2021-06-30] MEDS ORDERED: normal saline 1000ml 1,000 ML IV SCH (04:45)
[2021-06-30] MEDS ORDERED: magnesium 4gm in 100ml NS 100 ML IV PRN (04:45)
[2021-06-30] MEDS ORDERED: potassium Cl 40MEQ/1/2NS 520ml 520 ML IV PRN (04:45)
[2021-06-30] MEDS ORDERED: potassium Cl 20 mEq SR tablet PO PRN ×2 (04:45)
[2021-06-30] MEDS: insulin Lispro (HumaLOG) vial - multi-dose SQ SCH ×4 (05:09→22:24)
--- NOTE | 2021-06-30 06:00 | NUR ---
0435: Received orders to renew K/Mg protocol due to K+ of 3.0. Stop D5 and replace it with NS @ 150ml/hr because of BG 424 at scheduled BMP at 0400. I was also told to use our night time protocol sheet to treat his his BG, 14units was given
--- NOTE | 2021-06-30 06:36 | NUR ---
Problems reprioritized. Patient report given, questions answered & plan of care reviewed with VALENCIA uBrciaga.
--- NOTE | 2021-06-30 06:38 | NUR ---
Patient in room LETA 354. I have received report from Gary [place]IRMING[place]AM and had the opportunity to ask questions and assume patient care.
[2021-06-30 07:00] VITALS: BP 141/81
[2021-06-30] MEDS: K and/or MAG REPLACEMENT MC SCH ×4 (08:00→20:00)
[2021-06-30] MEDS: docusate sod 100mg capsule PO SCH ×2 (09:10→19:39)
[2021-06-30] MEDS: CefTRIAXone 2gm/D5W 50ml BAG 50 ML IV SCH ×2 (09:10→19:53)
[2021-06-30] MEDS: thiamine inj. 100 MG in normal saline 100ml IV soln 100 ML IV SCH (09:10)
[2021-06-30] MEDS: aspirin 81mg tab.chew PO SCH (09:10)
[2021-06-30] MEDS: venlafaxine XR 75mg capsule (Q24H) PO SCH (09:11)
[2021-06-30] MEDS: lactobacillus rhamnosus 10,000 MMU CELLS/CAPSULE PO SCH ×2 (09:11→19:37)
[2021-06-30] MEDS: HYDROchlorothiazide 25mg tablet PO SCH (09:11)
[2021-06-30] MEDS: amLODIPine 5mg tablet PO SCH (09:12)
[2021-06-30] MEDS: heparin, porcine 5000 units/ml vial SQ SCH ×2 (09:14→19:45)
[2021-06-30] MEDS: pantoprazole 40mg Tablet.DR PO SCH (09:18)
[2021-06-30] MEDS: HYDROcodone/acetaminophen 10/325mg tab PO PRN ×2 (09:18→19:39)
[2021-06-30] MEDS: folic acid 1mg/0.2ml inj IV SCH (09:19)
[2021-06-30 09:41] LABS: ALBUMIN 1.6 G/DL (3.4-5.0); BLOOD UREA NITROGEN 34 MG/DL (7-18); BUN/CREATININE RATIO 17.6 (5.4-32.0); CALCIUM 10.3 MG/DL (8.5-10.1); CREATININE 1.93 MG/DL (0.60-1.10); GLUCOSE 295 MG/DL (70-104); TOTAL CARBON DIOXIDE 23.6 MMOL/L (24-32); eGFR 35 ML/MIN
[2021-06-30 09:45] LABS: ANION GAP 8 (8-16); CHLORIDE 119 MMOL/L (99-107); POTASSIUM 3.6 MMOL/L (3.5-5.1); SODIUM 151 MMOL/L (135-145)
[2021-06-30 11:00] VITALS: BP 130/68
[2021-06-30 13:39] LABS: BASOPHILS # (AUTO) 0.1 X10'3 (0-0.2); BASOPHILS % (AUTO) 0.4 % (0-1); EOSINOPHILS # (AUTO) 0.4 X10'3 (0-0.9); EOSINOPHILS % (AUTO) 2.1 % (0-6); HEMATOCRIT 40.1 % (42.0-52.0); LYMPHOCYTES # (AUTO) 2.2 X10'3 (1.1-4.8); LYMPHOCYTES % (AUTO) 11.6 % (21-51); MEAN CORPUSCULAR HEMOGLOBIN 28.8 PG (27.0-31.0); MEAN CORPUSCULAR HGB CONC 32.4 g/dL (33.0-36.5); MEAN CORPUSCULAR VOLUME 88.8 FL (78-98); MEAN PLATELET VOLUME 8.2 FL (7.4-10.4); MONOCYTES # (AUTO) 0.9 X10'3 (0-0.9); MONOCYTES % (AUTO) 4.9 % (2-12); NEUTROPHILS # (AUTO) 15.5 X10'3 (1.8-7.7); PLATELET COUNT 422 X10'3 (140-440); RED BLOOD COUNT 4.51 X10'6 (4.70-6.10); RED CELL DISTRIBUTION WIDTH 15.4 % (11.5-14.5); WHITE BLOOD COUNT 19.1 X10'3 (4.5-11.0)
[2021-06-30 14:15] LABS: TOTAL CELLS COUNTED 100
[2021-06-30 14:16] LABS: ANISOCYTOSIS FEW; PLATELET ESTIMATE NORMAL; TOXIC GRANULATION 1+
[2021-06-30 18:00] VITALS: BP 121/72
--- NOTE | 2021-06-30 18:25 | NUR ---
Problems reprioritized. Patient report given, questions answered & plan of care reviewed with Gary B[place]MING[place].
--- NOTE | 2021-06-30 18:54 | NUR ---
I have received report from Burciaga RN and had the opportunity to ask questions and assume patient care. Helped thanh wynn,
[2021-06-30] MEDS: magnesium hydroxide 30ml (MOM) UD suspension PO PRN (19:42)
[2021-06-30] MEDS: insulin glargine (Lantus) pen - multi-dose SQ SCH (22:27)
[2021-07-01 00:08] VITALS: BP 131/77
[2021-07-01 05:34] LABS: BASOPHILS # (AUTO) 0.1 X10'3 (0-0.2); BASOPHILS % (AUTO) 0.6 % (0-1); EOSINOPHILS # (AUTO) 0.4 X10'3 (0-0.9); EOSINOPHILS % (AUTO) 2.2 % (0-6); HEMOGLOBIN 13.3 g/dl (14.0-17.9); LYMPHOCYTES # (AUTO) 1.6 X10'3 (1.1-4.8); LYMPHOCYTES % (AUTO) 8.2 % (21-51); MEAN CORPUSCULAR HEMOGLOBIN 28.6 PG (27.0-31.0); MEAN CORPUSCULAR HGB CONC 31.6 g/dL (33.0-36.5); MEAN CORPUSCULAR VOLUME 90.3 FL (78-98); MEAN PLATELET VOLUME 9.3 FL (7.4-10.4); MONOCYTES # (AUTO) 1.2 X10'3 (0-0.9); MONOCYTES % (AUTO) 6.3 % (2-12); NEUTROPHILS # (AUTO) 15.6 X10'3 (1.8-7.7); NEUTROPHILS % (AUTO) 82.7 % (42-75); PLATELET COUNT 378 X10'3 (140-440); RED BLOOD COUNT 4.65 X10'6 (4.70-6.10); RED CELL DISTRIBUTION WIDTH 15.5 % (11.5-14.5); WHITE BLOOD COUNT 18.9 X10'3 (4.5-11.0)
[2021-07-01 05:51] LABS: ALANINE AMINOTRANSFERASE 35 U/L (12-78); ALBUMIN 1.7 G/DL (3.4-5.0); ALBUMIN/GLOBULIN RATIO 0.3 (1.1-1.5); ALKALINE PHOSPHATASE 181 IU/L (46-116); ANION GAP 11 (8-16); ASPARTATE AMINO TRANSFERASE 19 U/L (10-37); BILIRUBIN,TOTAL 0.4 MG/DL (0.1-1.0); BLOOD UREA NITROGEN 39 MG/DL (7-18); BUN/CREATININE RATIO 19.7 (5.4-32.0); CALCIUM 11.5 MG/DL (8.5-10.1); CHLORIDE 126 MMOL/L (99-107); CREATININE 1.98 MG/DL (0.60-1.10); GLUCOSE 266 MG/DL (70-104); MAGNESIUM 2.9 MG/DL (1.5-2.4); TOTAL CARBON DIOXIDE 22.3 MMOL/L (24-32); eGFR 34 ML/MIN
[2021-07-01 05:53] LABS: POTASSIUM 4.2 MMOL/L (3.5-5.1)
[2021-07-01 05:55] LABS: SODIUM 159 MMOL/L (135-145)
[2021-07-01 07:15] VITALS: BP 137/81
[2021-07-01] MEDS: K and/or MAG REPLACEMENT MC SCH ×4 (08:00→20:00)
[2021-07-01] MEDS: aspirin 81mg tab.chew PO SCH (08:52)
[2021-07-01] MEDS: venlafaxine XR 75mg capsule (Q24H) PO SCH (08:52)
[2021-07-01] MEDS: pantoprazole 40mg Tablet.DR PO SCH (08:52)
[2021-07-01] MEDS: amLODIPine 5mg tablet PO SCH (08:52)
[2021-07-01] MEDS: heparin, porcine 5000 units/ml vial SQ SCH (08:53)
[2021-07-01] MEDS: docusate sod 100mg capsule PO SCH ×2 (08:53→19:21)
[2021-07-01] MEDS: thiamine inj. 100 MG in normal saline 100ml IV soln 100 ML IV SCH (08:53)
[2021-07-01] MEDS: folic acid 1mg/0.2ml inj IV SCH (08:54)
[2021-07-01] MEDS: dextrose 5%-water 1,000 ML IV SCH ×3 (08:59→20:04)
[2021-07-01] MEDS: lactobacillus rhamnosus 10,000 MMU CELLS/CAPSULE PO SCH ×2 (09:08→19:21)
[2021-07-01] MEDS: HYDROchlorothiazide 25mg tablet PO SCH (09:08)
[2021-07-01] MEDS: CefTRIAXone 2gm/D5W 50ml BAG 50 ML IV SCH ×2 (09:11→19:28)
[2021-07-01] MEDS: insulin Lispro (HumaLOG) vial - multi-dose SQ SCH ×4 (09:14→21:39)
[2021-07-01 12:00] VITALS: BP 134/80
--- NOTE | 2021-07-01 12:57 | NUR ---
Reassessment: Pt previously with 50-75% PO intake however PO intake has declined since lunch 06/29, although noted that most meals were not documented in EMR on 06/30. Pt remains A/O x 1 and confused, in restraints and with a sitter per EMR. Noted pt documented to only be receiving minimal to moderate assist with meals, though is receiving chopped food TID. IF PO intake continues to decline pt would benefit from EN to assist with meeting estimated nutrient needs, d/w RN. Noted pt continues with D5 at 100 mL/hr for elevated serum Na, providing ~408 kcal/day. LBM 06/30. Written DM education with RD contact information placed in patient's chart, though pt would benefit from f/u verbal education once alert and oriented. Will continue to follow closely. Recommendations: 1) Continue CHO controlled diet; monitor need for BSS with ST in view of ALOC 2) Chop meat; encourage PO intake and assist with meals in view of ALOC 3) Consider EN to assist with meeting estimated nutrient needs if PO intake continues to decline 4) Continue routine Thiamine, Folic acid, and MVI for EtOH hx 5) Routine bowel care 6) Scaled weight this admit; weekly scaled weights thereafter 7) DM education once stable/alert/oriented, A1c 12.3%; written education with RD contact information placed in patient's chart Addendum: 07/01/21 at [address] Amended: Links added.
[2021-07-01 15:36] LABS: ALBUMIN 1.7 G/DL (3.4-5.0); ANION GAP 9 (8-16); BLOOD UREA NITROGEN 43 MG/DL (7-18); BUN/CREATININE RATIO 19.8 (5.4-32.0); CALCIUM 10.9 MG/DL (8.5-10.1); CHLORIDE 123 MMOL/L (99-107); CREATININE 2.17 MG/DL (0.60-1.10); GLUCOSE 353 MG/DL (70-104); POTASSIUM 3.6 MMOL/L (3.5-5.1); TOTAL CARBON DIOXIDE 26.1 MMOL/L (24-32); eGFR 30 ML/MIN
[2021-07-01 15:38] LABS: SODIUM 158 MMOL/L (135-145)
--- NOTE | 2021-07-01 15:40 | NUR ---
PAGER ID: [phone] MESSAGE: [phone] Vargas Williamson: LEYDI....Sodium 158. Chloride 123. thanks! sandi [phone]
[2021-07-01 18:00] VITALS: BP 132/75
--- NOTE | 2021-07-01 18:13 | NUR ---
Problems reprioritized. Patient report given, questions answered & plan of care reviewed with VALENCIA Vega.
--- NOTE | 2021-07-01 18:16 | NUR ---
I have received report from enzo Flood and had the opportunity to ask questions and assume patient care.
[2021-07-01] MEDS: thiamine 100mg tablet PO SCH (19:21)
[2021-07-01] MEDS: apixaban 5mg tablet PO SCH (19:21)
[2021-07-01 21:14] LABS: ALBUMIN 1.7 G/DL (3.4-5.0); ANION GAP 10 (8-16); BLOOD UREA NITROGEN 40 MG/DL (7-18); BUN/CREATININE RATIO 19.4 (5.4-32.0); CALCIUM 10.7 MG/DL (8.5-10.1); CHLORIDE 121 MMOL/L (99-107); CREATININE 2.06 MG/DL (0.60-1.10); GLUCOSE 362 MG/DL (70-104); POTASSIUM 3.4 MMOL/L (3.5-5.1); TOTAL CARBON DIOXIDE 24.8 MMOL/L (24-32); eGFR 32 ML/MIN
[2021-07-01 21:29] LABS: SODIUM 156 MMOL/L (135-145)
[2021-07-01] MEDS: insulin glargine (Lantus) pen - multi-dose SQ SCH (21:44)
--- NOTE | 2021-07-01 22:01 | NUR ---
Patient refused his medications when I attempted to give him them.
[2021-07-02] VITALS: BP 132/80
[2021-07-02] MEDS: morphine 2 MG/ML inj. syringe IV PRN (01:11)
[2021-07-02] MEDS: dextrose 5%-water 1,000 ML IV SCH ×2 (05:40→19:07)
--- NOTE | 2021-07-02 06:39 | NUR ---
Problems reprioritized. Patient report given, questions answered & plan of care reviewed with VALENCIA Baires.
[2021-07-02 07:23] LABS: BASOPHILS # (AUTO) 0.1 X10'3 (0-0.2); BASOPHILS % (AUTO) 0.3 % (0-1); EOSINOPHILS # (AUTO) 0.3 X10'3 (0-0.9); EOSINOPHILS % (AUTO) 1.7 % (0-6); HEMATOCRIT 41.8 % (42.0-52.0); HEMOGLOBIN 13.2 g/dl (14.0-17.9); LYMPHOCYTES # (AUTO) 1.7 X10'3 (1.1-4.8); LYMPHOCYTES % (AUTO) 8.8 % (21-51); MEAN CORPUSCULAR HEMOGLOBIN 28.4 PG (27.0-31.0); MEAN CORPUSCULAR HGB CONC 31.6 g/dL (33.0-36.5); MEAN PLATELET VOLUME 8.7 FL (7.4-10.4); MONOCYTES % (AUTO) 5.2 % (2-12); NEUTROPHILS # (AUTO) 16.2 X10'3 (1.8-7.7); PLATELET COUNT 414 X10'3 (140-440); RED BLOOD COUNT 4.65 X10'6 (4.70-6.10); RED CELL DISTRIBUTION WIDTH 15.4 % (11.5-14.5); WHITE BLOOD COUNT 19.3 X10'3 (4.5-11.0)
[2021-07-02 07:25] VITALS: BP 147/78
--- NOTE | 2021-07-02 07:33 | NUR ---
PAGER ID: [phone] MESSAGE: Vargas Williamson [id number] Restraints still needed for this pt and it has been over 24 hour since order renewed. not swallowing pills- so refusing Eliquis. Do we need another lithium level since NA is high? WBC increasing. phos lab? Chrsitina [phone]
[2021-07-02 07:36] LABS: ALANINE AMINOTRANSFERASE 30 U/L (12-78); ALBUMIN 1.7 G/DL (3.4-5.0); ALBUMIN/GLOBULIN RATIO 0.3 (1.1-1.5); ALKALINE PHOSPHATASE 166 IU/L (46-116); ANION GAP 7 (8-16); ASPARTATE AMINO TRANSFERASE 16 U/L (10-37); BILIRUBIN,TOTAL 0.5 MG/DL (0.1-1.0); BLOOD UREA NITROGEN 39 MG/DL (7-18); BUN/CREATININE RATIO 20.2 (5.4-32.0); CHLORIDE 121 MMOL/L (99-107); CREATININE 1.93 MG/DL (0.60-1.10); GLUCOSE 346 MG/DL (70-104); MAGNESIUM 2.8 MG/DL (1.5-2.4); POTASSIUM 3.8 MMOL/L (3.5-5.1); SODIUM 154 MMOL/L (135-145); TOTAL CARBON DIOXIDE 26.5 MMOL/L (24-32); TOTAL PROTEIN 7.9 G/DL (6.4-8.2); eGFR 35 ML/MIN
[2021-07-02] MEDS: K and/or MAG REPLACEMENT MC SCH ×4 (08:00→19:40)
[2021-07-02] MEDS: aspirin 81mg tab.chew PO SCH (09:39)
[2021-07-02] MEDS: multivitamins, therapeutics tablet PO SCH (09:39)
[2021-07-02] MEDS: thiamine 100mg tablet PO SCH ×2 (09:39→19:42)
[2021-07-02] MEDS: venlafaxine XR 75mg capsule (Q24H) PO SCH (09:39)
[2021-07-02] MEDS: haloperidol 5mg tablet PO PRN (09:40)
[2021-07-02] MEDS: apixaban 5mg tablet PO SCH ×2 (09:40→19:41)
[2021-07-02] MEDS: pantoprazole 40mg Tablet.DR PO SCH (09:40)
[2021-07-02] MEDS: amLODIPine 5mg tablet PO SCH (09:40)
[2021-07-02] MEDS: docusate sod 100mg capsule PO SCH ×2 (09:41→19:41)
[2021-07-02] MEDS: CefTRIAXone 2gm/D5W 50ml BAG 50 ML IV SCH ×2 (09:41→19:08)
[2021-07-02] MEDS: folic acid 1mg/0.2ml inj IV SCH (09:41)
[2021-07-02] MEDS: lactobacillus rhamnosus 10,000 MMU CELLS/CAPSULE PO SCH ×2 (09:41→19:41)
[2021-07-02] MEDS: insulin Lispro (HumaLOG) vial - multi-dose SQ SCH ×3 (09:53→19:46)
[2021-07-02] MEDS: HYDROchlorothiazide 25mg tablet PO SCH (10:00)
[2021-07-02 12:13] VITALS: BP 132/84
[2021-07-02 18:00] VITALS: BP 123/74
[2021-07-02] MEDS: insulin glargine (Lantus) pen - multi-dose SQ SCH (22:05)
[2021-07-03] VITALS: BP 133/74
--- NOTE | 2021-07-03 | NUR ---
Pt. not able to swallow his PM medications. 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 able to swallow AM medications appropriately 8/8 AM when hospitalist rounded. Pt. this evening seems to have delayed swallowing capabilities and just lets pills sit in his mouth. Per sitter in room, pt. coughed a little when drinking thin liquids. Night MD notified. Started heparin drip for pt. and would like BSS as well as day hospitalist to be made aware at start of shift. Will pass on to oncoming RN during report.
--- NOTE | 2021-07-03 01:42 | NUR ---
PAGER ID: [phone] MESSAGE: Vargas Kingck 358A This pt. is unable to swallow his medication this evening including his Eliquis. Heparin drip? ST eval? BSS? Viry [phone]
[2021-07-03] MEDS ORDERED: heparin 25,000 UNIT/250ml bag 250 ML IV SCH ×3 (02:20→02:45)
[2021-07-03] MEDS ORDERED: heparin 10,000 units/1 ML INJ IV PRN ×3 (02:20→02:45)
[2021-07-03] MEDS ORDERED: heparin 10,000 units/1 ML INJ IV ONE (02:20)
[2021-07-03] MEDS: dextrose 5%-water 1,000 ML IV SCH ×2 (03:58→14:17)
--- NOTE | 2021-07-03 06:35 | NUR ---
Gave report to Radha BIRMINGHAM.
[2021-07-03 06:46] LABS: BASOPHILS # (AUTO) 0.1 X10'3 (0-0.2); BASOPHILS % (AUTO) 0.5 % (0-1); EOSINOPHILS # (AUTO) 0.4 X10'3 (0-0.9); HEMATOCRIT 40.5 % (42.0-52.0); HEMOGLOBIN 13.1 g/dl (14.0-17.9); LYMPHOCYTES # (AUTO) 1.6 X10'3 (1.1-4.8); LYMPHOCYTES % (AUTO) 9.4 % (21-51); MEAN CORPUSCULAR HEMOGLOBIN 28.8 PG (27.0-31.0); MEAN CORPUSCULAR HGB CONC 32.4 g/dL (33.0-36.5); MEAN CORPUSCULAR VOLUME 88.9 FL (78-98); MONOCYTES # (AUTO) 0.9 X10'3 (0-0.9); MONOCYTES % (AUTO) 5.3 % (2-12); NEUTROPHILS # (AUTO) 14.3 X10'3 (1.8-7.7); NEUTROPHILS % (AUTO) 82.8 % (42-75); PLATELET COUNT 346 X10'3 (140-440); RED BLOOD COUNT 4.55 X10'6 (4.70-6.10); RED CELL DISTRIBUTION WIDTH 15.7 % (11.5-14.5); WHITE BLOOD COUNT 17.3 X10'3 (4.5-11.0)
[2021-07-03 07:15] LABS: ALANINE AMINOTRANSFERASE 29 U/L (12-78); ALBUMIN 1.6 G/DL (3.4-5.0); ALBUMIN/GLOBULIN RATIO 0.3 (1.1-1.5); ALKALINE PHOSPHATASE 159 IU/L (46-116); ANION GAP 8 (8-16); ASPARTATE AMINO TRANSFERASE 17 U/L (10-37); BILIRUBIN,TOTAL 0.5 MG/DL (0.1-1.0); BLOOD UREA NITROGEN 38 MG/DL (7-18); BUN/CREATININE RATIO 19.6 (5.4-32.0); CALCIUM 10.3 MG/DL (8.5-10.1); CHLORIDE 118 MMOL/L (99-107); CREATININE 1.94 MG/DL (0.60-1.10); GLUCOSE 368 MG/DL (70-104); MAGNESIUM 2.5 MG/DL (1.5-2.4); POTASSIUM 3.5 MMOL/L (3.5-5.1); SODIUM 150 MMOL/L (135-145); TOTAL CARBON DIOXIDE 23.6 MMOL/L (24-32); TOTAL PROTEIN 7.6 G/DL (6.4-8.2); eGFR 35 ML/MIN
[2021-07-03 08:00] VITALS: BP 134/65
[2021-07-03] MEDS: K and/or MAG REPLACEMENT MC SCH ×4 (08:00→19:27)
[2021-07-03] MEDS: thiamine 100mg tablet PO SCH ×2 (08:52→19:40)
[2021-07-03] MEDS: pantoprazole 40mg Tablet.DR PO SCH (08:52)
[2021-07-03] MEDS: lactobacillus rhamnosus 10,000 MMU CELLS/CAPSULE PO SCH ×2 (08:52→19:41)
[2021-07-03] MEDS: docusate sod 100mg capsule PO SCH ×2 (08:52→19:41)
[2021-07-03] MEDS: multivitamins, therapeutics tablet PO SCH (08:52)
[2021-07-03] MEDS: HYDROchlorothiazide 25mg tablet PO SCH (08:53)
[2021-07-03] MEDS: amLODIPine 5mg tablet PO SCH (08:53)
[2021-07-03] MEDS: aspirin 81mg tab.chew PO SCH (08:53)
[2021-07-03] MEDS: folic acid 1mg/0.2ml inj IV SCH (08:56)
[2021-07-03] MEDS: CefTRIAXone 2gm/D5W 50ml BAG 50 ML IV SCH (08:56)
[2021-07-03] MEDS: venlafaxine XR 75mg capsule (Q24H) PO SCH (09:20)
[2021-07-03] MEDS: insulin Lispro (HumaLOG) vial - multi-dose SQ SCH ×3 (09:27→19:38)
[2021-07-03 12:00] VITALS: BP 127/70
[2021-07-03 18:00] VITALS: BP_SYST 113; BP_SYST 134; BP_DIAS 83; BP_DIAS 89
--- NOTE | 2021-07-03 18:10 | NUR ---
Problems reprioritized. Patient report given, questions answered & plan of care reviewed with Leonora BIRMING[place]AM.
--- NOTE | 2021-07-03 18:15 | NUR ---
Patient in room LETA 358. I have received report from Radha BIRMING[place]AM and had the opportunity to ask questions and assume patient care.
[2021-07-03] MEDS: apixaban 5mg tablet PO SCH (19:40)
[2021-07-03] MEDS: insulin glargine (Lantus) pen - multi-dose SQ SCH (22:40)
[2021-07-04] VITALS: BP 113/83
[2021-07-04] MEDS: dextrose 5%-water 1,000 ML IV SCH ×3 (00:51→20:40)
--- NOTE | 2021-07-04 06:35 | NUR ---
Problems reprioritized. Patient report given, questions answered & plan of care reviewed with Radha BIRMING[place].
[2021-07-04 07:00] VITALS: BP 113/80
[2021-07-04] MEDS: K and/or MAG REPLACEMENT MC SCH ×3 (08:00→19:37)
[2021-07-04] MEDS: CefTRIAXone 2gm/D5W 50ml BAG 50 ML IV SCH (09:14)
[2021-07-04] MEDS: insulin Lispro (HumaLOG) vial - multi-dose SQ SCH ×4 (09:16→22:28)
[2021-07-04] MEDS: folic acid 1mg/0.2ml inj IV SCH (09:17)
[2021-07-04 09:19] LABS: BASOPHILS # (AUTO) 0.1 X10'3 (0-0.2); BASOPHILS % (AUTO) 0.4 % (0-1); EOSINOPHILS # (AUTO) 0.3 X10'3 (0-0.9); EOSINOPHILS % (AUTO) 1.8 % (0-6); HEMATOCRIT 40.8 % (42.0-52.0); HEMOGLOBIN 13.1 g/dl (14.0-17.9); LYMPHOCYTES # (AUTO) 1.7 X10'3 (1.1-4.8); LYMPHOCYTES % (AUTO) 10.4 % (21-51); MEAN CORPUSCULAR HEMOGLOBIN 28.2 PG (27.0-31.0); MEAN CORPUSCULAR VOLUME 88.2 FL (78-98); MEAN PLATELET VOLUME 9.1 FL (7.4-10.4); MONOCYTES # (AUTO) 0.9 X10'3 (0-0.9); MONOCYTES % (AUTO) 5.1 % (2-12); NEUTROPHILS # (AUTO) 13.7 X10'3 (1.8-7.7); NEUTROPHILS % (AUTO) 82.3 % (42-75); PLATELET COUNT 405 X10'3 (140-440); RED BLOOD COUNT 4.63 X10'6 (4.70-6.10); RED CELL DISTRIBUTION WIDTH 15.1 % (11.5-14.5); WHITE BLOOD COUNT 16.7 X10'3 (4.5-11.0)
[2021-07-04 10:08] LABS: ALANINE AMINOTRANSFERASE 36 U/L (12-78); ALBUMIN 1.7 G/DL (3.4-5.0); ALBUMIN/GLOBULIN RATIO 0.3 (1.1-1.5); ALKALINE PHOSPHATASE 167 IU/L (46-116); ANION GAP 11 (8-16); ASPARTATE AMINO TRANSFERASE 19 U/L (10-37); BILIRUBIN,TOTAL 0.7 MG/DL (0.1-1.0); BLOOD UREA NITROGEN 34 MG/DL (7-18); BUN/CREATININE RATIO 18.7 (5.4-32.0); CALCIUM 10.2 MG/DL (8.5-10.1); CHLORIDE 115 MMOL/L (99-107); CREATININE 1.82 MG/DL (0.60-1.10); GLUCOSE 333 MG/DL (70-104); MAGNESIUM 2.4 MG/DL (1.5-2.4); POTASSIUM 3.3 MMOL/L (3.5-5.1); SODIUM 148 MMOL/L (135-145); TOTAL CARBON DIOXIDE 22.3 MMOL/L (24-32); eGFR 37 ML/MIN
[2021-07-04] MEDS: thiamine 100mg tablet PO SCH ×2 (10:45→19:31)
[2021-07-04] MEDS: HYDROchlorothiazide 25mg tablet PO SCH (10:46)
[2021-07-04] MEDS: multivitamins, therapeutics tablet PO SCH (10:46)
[2021-07-04] MEDS: aspirin 81mg tab.chew PO SCH (10:46)
[2021-07-04] MEDS: apixaban 5mg tablet PO SCH ×2 (10:46→19:31)
[2021-07-04] MEDS: venlafaxine XR 75mg capsule (Q24H) PO SCH (10:47)
[2021-07-04] MEDS: docusate sod 100mg capsule PO SCH ×2 (10:47→19:31)
[2021-07-04] MEDS: amLODIPine 5mg tablet PO SCH (10:47)
[2021-07-04] MEDS: lactobacillus rhamnosus 10,000 MMU CELLS/CAPSULE PO SCH ×2 (10:47→19:31)
[2021-07-04] MEDS: pantoprazole 40mg Tablet.DR PO SCH (10:47)
[2021-07-04 11:30] VITALS: BP 120/73
[2021-07-04] MEDS ORDERED: potassium Cl 20 mEq SR tablet PO PRN (13:55)
[2021-07-04] MEDS ORDERED: magnesium Cl slow-release 64mg tablet PO PRN (13:55)
[2021-07-04] MEDS ORDERED: potassium Cl 40MEQ/1/2NS 520ml 520 ML IV PRN (13:55)
[2021-07-04] MEDS ORDERED: magnesium 4gm in 100ml NS 100 ML IV PRN (13:55)
[2021-07-04] MEDS: potassium Cl 20 mEq SR tablet PO PRN ×2 (14:12→19:39)
--- NOTE | 2021-07-04 14:48 | NUR ---
Reassessment: Per opening machine cleaner pt unable to swallow HS pills. ST was consulted for BSS. ST originally had recommended SB6 food with thin liquids 07/03 however at f/u BSS today ST recommended digression to MM5 with nectar thick liquids and a feeder. Pending documentation of PO intake for today. If PO intake remains insufficient pt would benefit from EN to assist with meeting estimated nutrient needs. LBM 8/6, receiving routine bowel care. Will continue to follow closely. Recommendations: 1) Continue MM5 CHO controlled diet with nectar thick liquids per ST recs 2) Encourage PO intake and assist with meals in view of ALOC 3) Consider EN to assist with meeting estimated nutrient needs if PO intake continues to decline; IF EN, continuous Vital AF 1.2 with goal rate of 75 mL/hr with 150 mL water flush Q4H (to adjust based on serum Na and hydration needs) 4) Continue routine Thiamine, Folic acid, and MVI for EtOH hx 5) Routine bowel care 6) Scaled weight this admit; weekly scaled weights thereafter 7) DM education once stable/alert/oriented, A1c 12.3%; written education with RD contact information placed in patient's chart Addendum: 07/04/21 at [address] Amended: Links added.
[2021-07-04 18:00] VITALS: BP 144/96
--- NOTE | 2021-07-04 18:23 | NUR ---
Problems reprioritized. Patient report given, questions answered & plan of care reviewed with Leonora BIRMING[place]AM.
--- NOTE | 2021-07-04 18:25 | NUR ---
Patient in room LETA 358. I have received report from Radha BIRMING[place]AM and had the opportunity to ask questions and assume patient care.
[2021-07-04] MEDS: insulin glargine (Lantus) pen - multi-dose SQ SCH (21:00)
[2021-07-05] VITALS: BP 152/79
[2021-07-05] MEDS: dextrose 5%-water 1,000 ML IV SCH ×2 (04:59→15:39)
--- NOTE | 2021-07-05 06:27 | NUR ---
Problems reprioritized. Patient report given, questions answered & plan of care reviewed with Radha Adhikari.
[2021-07-05 07:00] VITALS: BP 125/83
[2021-07-05] MEDS: K and/or MAG REPLACEMENT MC SCH ×2 (08:00→20:45)
[2021-07-05] MEDS: multivitamins, therapeutics tablet PO SCH (08:57)
[2021-07-05] MEDS: thiamine 100mg tablet PO SCH ×2 (08:57→20:37)
[2021-07-05] MEDS: apixaban 5mg tablet PO SCH ×2 (08:57→20:37)
[2021-07-05] MEDS: lactobacillus rhamnosus 10,000 MMU CELLS/CAPSULE PO SCH ×2 (08:58→20:37)
[2021-07-05] MEDS: HYDROchlorothiazide 25mg tablet PO SCH (08:58)
[2021-07-05] MEDS: amLODIPine 5mg tablet PO SCH (08:58)
[2021-07-05] MEDS: venlafaxine XR 75mg capsule (Q24H) PO SCH (08:58)
[2021-07-05] MEDS: aspirin 81mg tab.chew PO SCH (08:58)
[2021-07-05] MEDS: docusate sod 100mg capsule PO SCH ×2 (08:58→20:37)
[2021-07-05] MEDS: pantoprazole 40mg Tablet.DR PO SCH (08:58)
[2021-07-05] MEDS: CefTRIAXone 2gm/D5W 50ml BAG 50 ML IV SCH (09:01)
[2021-07-05] MEDS: folic acid 1mg/0.2ml inj IV SCH (09:02)
[2021-07-05] MEDS: insulin Lispro (HumaLOG) vial - multi-dose SQ SCH ×2 (09:25→20:45)
[2021-07-05 09:51] LABS: BASOPHILS % (AUTO) 0.3 % (0-1); EOSINOPHILS # (AUTO) 0.3 X10'3 (0-0.9); EOSINOPHILS % (AUTO) 1.8 % (0-6); HEMATOCRIT 44.1 % (42.0-52.0); HEMOGLOBIN 13.9 g/dl (14.0-17.9); LYMPHOCYTES # (AUTO) 1.7 X10'3 (1.1-4.8); LYMPHOCYTES % (AUTO) 11.9 % (21-51); MEAN CORPUSCULAR HEMOGLOBIN 28.1 PG (27.0-31.0); MEAN CORPUSCULAR HGB CONC 31.5 g/dL (33.0-36.5); MEAN CORPUSCULAR VOLUME 89.1 FL (78-98); MEAN PLATELET VOLUME 9.2 FL (7.4-10.4); MONOCYTES # (AUTO) 0.9 X10'3 (0-0.9); MONOCYTES % (AUTO) 6.4 % (2-12); NEUTROPHILS # (AUTO) 11.6 X10'3 (1.8-7.7); NEUTROPHILS % (AUTO) 79.6 % (42-75); PLATELET COUNT 329 X10'3 (140-440); RED BLOOD COUNT 4.95 X10'6 (4.70-6.10); RED CELL DISTRIBUTION WIDTH 15.3 % (11.5-14.5); WHITE BLOOD COUNT 14.6 X10'3 (4.5-11.0)
[2021-07-05 10:05] LABS: ALANINE AMINOTRANSFERASE 34 U/L (12-78); ALBUMIN 1.7 G/DL (3.4-5.0); ALBUMIN/GLOBULIN RATIO 0.3 (1.1-1.5); ALKALINE PHOSPHATASE 163 IU/L (46-116); ANION GAP 11 (8-16); ASPARTATE AMINO TRANSFERASE 21 U/L (10-37); BILIRUBIN,TOTAL 0.6 MG/DL (0.1-1.0); BLOOD UREA NITROGEN 35 MG/DL (7-18); BUN/CREATININE RATIO 20.2 (5.4-32.0); CHLORIDE 111 MMOL/L (99-107); CREATININE 1.73 MG/DL (0.60-1.10); GLUCOSE 331 MG/DL (70-104); MAGNESIUM 2.6 MG/DL (1.5-2.4); POTASSIUM 3.5 MMOL/L (3.5-5.1); SODIUM 143 MMOL/L (135-145); TOTAL CARBON DIOXIDE 21.4 MMOL/L (24-32); TOTAL PROTEIN 8.5 G/DL (6.4-8.2); eGFR 39 ML/MIN
[2021-07-05 11:13] VITALS: BP 115/78
[2021-07-05 19:09] VITALS: BP 133/76
[2021-07-05 20:24] VITALS: BP 133/76
[2021-07-05] MEDS: insulin glargine (Lantus) pen - multi-dose SQ SCH (20:43)
--- NOTE | 2021-07-05 21:20 | NUR ---
Problems reprioritized. Patient report given, questions answered & plan of care reviewed with
[2021-07-05 23:47] VITALS: BP 130/73
[2021-07-06] MEDS: dextrose 5%-water 1,000 ML IV SCH ×2 (01:09→12:19)
[2021-07-06 06:32] LABS: BASOPHILS # (AUTO) 0.1 X10'3 (0-0.2); BASOPHILS % (AUTO) 0.4 % (0-1); EOSINOPHILS # (AUTO) 0.2 X10'3 (0-0.9); EOSINOPHILS % (AUTO) 1.8 % (0-6); HEMATOCRIT 41.1 % (42.0-52.0); HEMOGLOBIN 13.1 g/dl (14.0-17.9); LYMPHOCYTES # (AUTO) 1.8 X10'3 (1.1-4.8); LYMPHOCYTES % (AUTO) 14.9 % (21-51); MEAN CORPUSCULAR HEMOGLOBIN 28.3 PG (27.0-31.0); MEAN CORPUSCULAR HGB CONC 31.9 g/dL (33.0-36.5); MEAN CORPUSCULAR VOLUME 88.6 FL (78-98); MEAN PLATELET VOLUME 9.2 FL (7.4-10.4); MONOCYTES % (AUTO) 7.9 % (2-12); NEUTROPHILS # (AUTO) 9.2 X10'3 (1.8-7.7); PLATELET COUNT 376 X10'3 (140-440); RED BLOOD COUNT 4.64 X10'6 (4.70-6.10); RED CELL DISTRIBUTION WIDTH 15.4 % (11.5-14.5); WHITE BLOOD COUNT 12.3 X10'3 (4.5-11.0)
[2021-07-06 07:03] LABS: ALANINE AMINOTRANSFERASE 29 U/L (12-78); ALBUMIN 1.7 G/DL (3.4-5.0); ALBUMIN/GLOBULIN RATIO 0.3 (1.1-1.5); ALKALINE PHOSPHATASE 166 IU/L (46-116); ANION GAP 10 (8-16); ASPARTATE AMINO TRANSFERASE 17 U/L (10-37); BILIRUBIN,TOTAL 0.5 MG/DL (0.1-1.0); BLOOD UREA NITROGEN 31 MG/DL (7-18); BUN/CREATININE RATIO 19.4 (5.4-32.0); CALCIUM 9.9 MG/DL (8.5-10.1); CHLORIDE 109 MMOL/L (99-107); GLUCOSE 403 MG/DL (70-104); POTASSIUM 3.3 MMOL/L (3.5-5.1); SODIUM 142 MMOL/L (135-145); TOTAL CARBON DIOXIDE 23.4 MMOL/L (24-32); TOTAL PROTEIN 8.2 G/DL (6.4-8.2); eGFR 43 ML/MIN
[2021-07-06 07:35] VITALS: BP 119/80
[2021-07-06] MEDS: K and/or MAG REPLACEMENT MC SCH ×2 (08:00→20:00)
[2021-07-06] MEDS: lactobacillus rhamnosus 10,000 MMU CELLS/CAPSULE PO SCH ×2 (10:07→21:35)
[2021-07-06] MEDS: HYDROchlorothiazide 25mg tablet PO SCH (10:08)
[2021-07-06] MEDS: venlafaxine XR 75mg capsule (Q24H) PO SCH (10:08)
[2021-07-06] MEDS: multivitamins, therapeutics tablet PO SCH (10:08)
[2021-07-06] MEDS: pantoprazole 40mg Tablet.DR PO SCH (10:08)
[2021-07-06] MEDS: aspirin 81mg tab.chew PO SCH (10:09)
[2021-07-06] MEDS: docusate sod 100mg capsule PO SCH ×2 (10:09→21:36)
[2021-07-06] MEDS: thiamine 100mg tablet PO SCH ×2 (10:09→21:36)
[2021-07-06] MEDS: amLODIPine 5mg tablet PO SCH (10:10)
[2021-07-06] MEDS: apixaban 5mg tablet PO SCH ×2 (10:10→21:36)
[2021-07-06] MEDS: folic acid 1mg/0.2ml inj IV SCH (10:11)
[2021-07-06] MEDS: CefTRIAXone 2gm/D5W 50ml BAG 50 ML IV SCH (10:11)
[2021-07-06] MEDS: insulin Lispro (HumaLOG) vial - multi-dose SQ SCH ×2 (10:21→22:17)
[2021-07-06] MEDS: sodium chloride 0.45% 1,000 ML IV SCH (13:16)
[2021-07-06] MEDS: potassium Cl 20 mEq SR tablet PO PRN ×2 (17:06→21:37)
[2021-07-06 18:00] VITALS: BP 160/66
--- NOTE | 2021-07-06 18:52 | NUR ---
Sepideh Surg [id number] re: 358b [place], after changing fluids from dextrose can we requalify the patient for hyperglycemia thanks sepideh Addendum: 07/06/21 at 1853 by Ankit Cao RN dr teetee blackman call and will requalify the patient for hyperglycemia
--- NOTE | 2021-07-06 19:05 | NUR ---
Patient in room LETA 346. I have received report from Coleman BIRM[place]AM and had the opportunity to ask questions and assume patient care.
--- NOTE | 2021-07-06 19:09 | NUR ---
Problems reprioritized. Patient report given, questions answered & plan of care reviewed with Denisha RN and Shekhar BIRMING[place]AM.
--- NOTE | 2021-07-06 19:44 | NUR ---
Patient in room LETA 358. I have received report from sepideh Adhikari and had the opportunity to ask questions and assume patient care.
--- NOTE | 2021-07-06 19:52 | NUR ---
Patient in room LETA 358. I have received report from JANELLE BIRMINGHAM and had the opportunity to ask questions and assume patient care.
[2021-07-06] MEDS: insulin glargine (Lantus) pen - multi-dose SQ SCH (21:50)
--- NOTE | 2021-07-06 22:09 | NUR ---
TT Dr. La regarding patients level 6 night insulin coverage (Humalog) we covered lantus at 48 untis and Humalog at 3 units instead of protocol of 5 units. Pt was on D5 1/2NS and switched to 1/2 NS Blood sugars trending down and pt is a max assist eater.
[2021-07-07] MEDS: sodium chloride 0.45% 1,000 ML IV SCH ×2 (01:42→14:25)
[2021-07-07] MEDS: potassium Cl 20 mEq SR tablet PO PRN (02:33)
[2021-07-07 06:30] LABS: BASOPHILS # (AUTO) 0.1 X10'3 (0-0.2); BASOPHILS % (AUTO) 0.6 % (0-1); EOSINOPHILS # (AUTO) 0.2 X10'3 (0-0.9); EOSINOPHILS % (AUTO) 2.1 % (0-6); HEMATOCRIT 37.7 % (42.0-52.0); HEMOGLOBIN 12.4 g/dl (14.0-17.9); LYMPHOCYTES # (AUTO) 1.8 X10'3 (1.1-4.8); LYMPHOCYTES % (AUTO) 16.8 % (21-51); MEAN CORPUSCULAR HEMOGLOBIN 28.8 PG (27.0-31.0); MEAN CORPUSCULAR VOLUME 87.4 FL (78-98); MEAN PLATELET VOLUME 9.1 FL (7.4-10.4); MONOCYTES # (AUTO) 0.8 X10'3 (0-0.9); MONOCYTES % (AUTO) 7.8 % (2-12); NEUTROPHILS # (AUTO) 7.8 X10'3 (1.8-7.7); NEUTROPHILS % (AUTO) 72.7 % (42-75); PLATELET COUNT 460 X10'3 (140-440); RED BLOOD COUNT 4.31 X10'6 (4.70-6.10); WHITE BLOOD COUNT 10.7 X10'3 (4.5-11.0)
--- NOTE | 2021-07-07 06:36 | NUR ---
Problems reprioritized. Patient report given, questions answered & plan of care reviewed with DEBBI BIRMINGHAM.
--- NOTE | 2021-07-07 06:40 | NUR ---
Problems reprioritized. Patient report given, questions answered & plan of care reviewed with Viry BIRMINGHAM.
[2021-07-07 06:41] LABS: ALANINE AMINOTRANSFERASE 37 U/L (12-78); ALBUMIN 1.8 G/DL (3.4-5.0); ALBUMIN/GLOBULIN RATIO 0.3 (1.1-1.5); ALKALINE PHOSPHATASE 183 IU/L (46-116); ANION GAP 7 (8-16); ASPARTATE AMINO TRANSFERASE 24 U/L (10-37); BILIRUBIN,TOTAL 0.4 MG/DL (0.1-1.0); BLOOD UREA NITROGEN 32 MG/DL (7-18); BUN/CREATININE RATIO 19.3 (5.4-32.0); CHLORIDE 110 MMOL/L (99-107); CREATININE 1.66 MG/DL (0.60-1.10); GLUCOSE 265 MG/DL (70-104); POTASSIUM 3.6 MMOL/L (3.5-5.1); SODIUM 142 MMOL/L (135-145); TOTAL CARBON DIOXIDE 25.3 MMOL/L (24-32); TOTAL PROTEIN 8.3 G/DL (6.4-8.2); eGFR 41 ML/MIN
[2021-07-07 07:19] VITALS: BP 144/89
[2021-07-07] MEDS: pantoprazole 40mg Tablet.DR PO SCH (07:30)
[2021-07-07] MEDS: venlafaxine XR 75mg capsule (Q24H) PO SCH (08:00)
[2021-07-07] MEDS: K and/or MAG REPLACEMENT MC SCH ×2 (08:00→20:00)
[2021-07-07] MEDS: docusate sod 100mg capsule PO SCH (08:00)
--- NOTE | 2021-07-07 10:18 | NUR ---
CALLED PHARMACIST TO CLARIFY WHAT MEDICATION CAN BE CRUSHED. PAGED . PAGER ID: [phone] MESSAGE: Vargas Williamson 358b RNS STATE THEY ARE CRUSHING MEDICATIONS HOWEVER PHARMACIST STATES CANNOT CRUSH PROTONIX, EFFEXOR ER, OR DOCUSATE. NEED REPLACEMENT ORDERS. DEBBI [id number] PATTI CALLED BACK AND STATES SHE WILL ADJUST MEDICATIONS.
[2021-07-07] MEDS: aspirin 81mg tab.chew PO SCH (10:24)
[2021-07-07] MEDS: multivitamins, therapeutics tablet PO SCH (10:24)
[2021-07-07] MEDS: lactobacillus rhamnosus 10,000 MMU CELLS/CAPSULE PO SCH ×2 (10:24→21:37)
[2021-07-07] MEDS: apixaban 5mg tablet PO SCH ×2 (10:25→21:38)
[2021-07-07] MEDS: thiamine 100mg tablet PO SCH ×2 (10:25→21:42)
[2021-07-07] MEDS: amLODIPine 5mg tablet PO SCH (10:25)
[2021-07-07] MEDS: folic acid 1mg/0.2ml inj IV SCH (10:27)
[2021-07-07] MEDS: insulin Lispro (HumaLOG) vial - multi-dose SQ SCH ×3 (10:34→18:51)
[2021-07-07 11:46] VITALS: BP 125/71
--- NOTE | 2021-07-07 11:53 | NUR ---
Reassessment: Serum Na now WNL and D5 was discontinued. Pt remains A/O x 1 and confused, now receiving total assistance with meals per EMR. PO intake seems to be improving with average 50-75% PO intake since last RD assessment (07/04), though noted pt documented with 100% PO intake at breakfast this morning. LBM 07/04, receiving routine bowel care BID with additional PRN bowel care available. No nutrition intervention implemented at this time. Will continue to follow. Recommendations: 1) Continue MM5 CHO controlled diet with nectar thick liquids per ST recs 2) Encourage PO intake and assist with meals in view of ALOC 3) Monitor need for additional protein/ONS 4) Consider EN to assist with meeting estimated nutrient needs if PO intake declines; IF EN, continuous Vital AF 1.2 with goal rate of 75 mL/hr with 150 mL water flush Q4H (to adjust based on serum Na and hydration needs) 5) Continue routine Thiamine, Folic acid, and MVI for EtOH hx 6) Routine bowel care 7) Scaled weight this admit; weekly scaled weights thereafter 8) DM education once stable/alert/oriented, A1c 12.3%; written education with RD contact information placed in patient's chart Addendum: 07/07/21 at [address] Amended: Links added.
--- NOTE | 2021-07-07 18:28 | NUR ---
Gave report to DOV BIRM[place]AM and Denisha B[place].
[2021-07-07] MEDS: haloperidol 5mg tablet PO PRN (18:44)
[2021-07-07] MEDS: ciprofloxacin 250mg tablet PO SCH (20:00)
[2021-07-07] MEDS: insulin glargine (Lantus) pen - multi-dose SQ SCH (21:30)
[2021-07-07] MEDS: docusate sodium 100mg/10ml UD cup PO SCH (21:37)
[2021-07-07] MEDS: venlafaxine 37.5mg tablet PO SCH (21:40)
[2021-07-08] VITALS: BP 132/83
[2021-07-08] MEDS: sodium chloride 0.45% 1,000 ML IV SCH ×2 (04:45→18:05)
[2021-07-08 05:54] LABS: BASOPHILS # (AUTO) 0.1 X10'3 (0-0.2); BASOPHILS % (AUTO) 0.8 % (0-1); EOSINOPHILS # (AUTO) 0.2 X10'3 (0-0.9); EOSINOPHILS % (AUTO) 1.7 % (0-6); HEMATOCRIT 37.9 % (42.0-52.0); HEMOGLOBIN 12.2 g/dl (14.0-17.9); LYMPHOCYTES # (AUTO) 2.6 X10'3 (1.1-4.8); LYMPHOCYTES % (AUTO) 19.9 % (21-51); MEAN CORPUSCULAR HEMOGLOBIN 28.4 PG (27.0-31.0); MEAN CORPUSCULAR HGB CONC 32.1 g/dL (33.0-36.5); MEAN CORPUSCULAR VOLUME 88.5 FL (78-98); MONOCYTES # (AUTO) 0.9 X10'3 (0-0.9); MONOCYTES % (AUTO) 6.7 % (2-12); NEUTROPHILS # (AUTO) 9.3 X10'3 (1.8-7.7); NEUTROPHILS % (AUTO) 70.9 % (42-75); PLATELET COUNT 485 X10'3 (140-440); RED BLOOD COUNT 4.28 X10'6 (4.70-6.10); RED CELL DISTRIBUTION WIDTH 14.9 % (11.5-14.5); WHITE BLOOD COUNT 13.1 X10'3 (4.5-11.0)
[2021-07-08 06:10] LABS: ALANINE AMINOTRANSFERASE 38 U/L (12-78); ALBUMIN 1.8 G/DL (3.4-5.0); ALBUMIN/GLOBULIN RATIO 0.3 (1.1-1.5); ALKALINE PHOSPHATASE 182 IU/L (46-116); ANION GAP 9 (8-16); ASPARTATE AMINO TRANSFERASE 27 U/L (10-37); BILIRUBIN,TOTAL 0.3 MG/DL (0.1-1.0); BLOOD UREA NITROGEN 34 MG/DL (7-18); BUN/CREATININE RATIO 21.3 (5.4-32.0); CALCIUM 9.7 MG/DL (8.5-10.1); CHLORIDE 112 MMOL/L (99-107); GLUCOSE 153 MG/DL (70-104); POTASSIUM 3.5 MMOL/L (3.5-5.1); SODIUM 146 MMOL/L (135-145); TOTAL CARBON DIOXIDE 25.5 MMOL/L (24-32); TOTAL PROTEIN 8.3 G/DL (6.4-8.2); eGFR 43 ML/MIN
--- NOTE | 2021-07-08 06:42 | NUR ---
Problems reprioritized. Patient report given, questions answered & plan of care reviewed with Crista BIRMING[place]AM.
--- NOTE | 2021-07-08 06:44 | NUR ---
Problems reprioritized. Patient report given, questions answered & plan of care reviewed with GEREMIAS BIRMINGHAM.
[2021-07-08 07:00] VITALS: BP 138/80
[2021-07-08] MEDS: K and/or MAG REPLACEMENT MC SCH ×2 (08:00→20:00)
[2021-07-08] MEDS: lactobacillus rhamnosus 10,000 MMU CELLS/CAPSULE PO SCH ×2 (08:00→19:29)
[2021-07-08] MEDS: folic acid 1mg/0.2ml inj IV SCH (09:29)
[2021-07-08] MEDS: aspirin 81mg tab.chew PO SCH (09:29)
[2021-07-08] MEDS: docusate sodium 100mg/10ml UD cup PO SCH ×2 (09:32→19:29)
[2021-07-08] MEDS: lansoprazole 15mg solutab PO SCH (09:34)
[2021-07-08] MEDS: thiamine 100mg tablet PO SCH ×2 (09:35→19:30)
[2021-07-08] MEDS: apixaban 5mg tablet PO SCH ×2 (09:36→19:30)
[2021-07-08] MEDS: amLODIPine 5mg tablet PO SCH (09:37)
[2021-07-08] MEDS: ciprofloxacin 250mg tablet PO SCH ×2 (09:38→19:30)
[2021-07-08] MEDS: multivitamins, therapeutics tablet PO SCH (09:38)
[2021-07-08] MEDS: venlafaxine 37.5mg tablet PO SCH ×2 (09:42→19:30)
[2021-07-08 11:57] VITALS: BP 133/79
[2021-07-08] MEDS: magnesium hydroxide 30ml (MOM) UD suspension PO PRN (12:06)
[2021-07-08] MEDS: insulin Lispro (HumaLOG) vial - multi-dose SQ SCH ×2 (14:08→20:01)
[2021-07-08 16:11] LABS: CLARITY,URINE CLEAR (Clear); COLOR,URINE YELLOW (Yellow); GLUCOSE, URINE 250 mg/dl (Neg); KETONES,URINE NEGATIVE (Neg); LEUKOCYTE ESTERASE ,URINE TRACE (Neg); NITRITES, URINE NEGATIVE (Neg); OCCULT BLOOD,URINE SMALL (Neg); PH,URINE 5.5 (4.8-8.0); PROTEIN,URINE 30 mg/dl (Neg); UROBILINOGEN,URINE 0.2 E.U/dL (0.2-1.0)
[2021-07-08 16:14] LABS: UA COLLECTION TYPE NON-SPECIFIED
[2021-07-08 16:17] LABS: BACTERIA,URINE FEW /HPF (Neg); MUCUS STRANDS FEW /LPF (Neg); WBC CLUMPS,URINE FEW /HPF (NEGATIVE)
[2021-07-08 16:18] LABS: FINE GRANULAR CAST 0-3 /LPF (NEGATIVE); SQUAMOUS EPITHELIAL CELL,UR MODERATE /LPF (FEW); YEAST FEW /HPF (NEGATIVE)
[2021-07-08 18:30] VITALS: BP 114/77
[2021-07-08] MEDS: insulin glargine (Lantus) pen - multi-dose SQ SCH (22:24)
[2021-07-08 23:30] VITALS: BP 126/76
[2021-07-09] MEDS: HYDROcodone/acetaminophen 10/325mg tab PO PRN (00:56)
[2021-07-09 06:30] VITALS: BP 98/73
--- NOTE | 2021-07-09 06:50 | NUR ---
Patient in room LETA 358. I have received report from VALENCIA Cuadra & DOV RN and had the opportunity to ask questions and assume patient care.
--- NOTE | 2021-07-09 07:04 | NUR ---
I have reviewed and I disagree with some of the interventions, assessments performed and documented by AVLENCIA Corrigan. Corrections have been made appropriately.
--- NOTE | 2021-07-09 07:04 | NUR ---
Problems reprioritized. Patient report given, questions answered & plan of care reviewed with VALENCIA Best.
[2021-07-09] MEDS: sodium chloride 0.45% 1,000 ML IV SCH ×2 (08:40→20:45)
[2021-07-09] MEDS: LORazepam 2 mg/ml vial IV PRN ×2 (08:59→18:49)
[2021-07-09 10:18] LABS: BASOPHILS # (AUTO) 0.1 X10'3 (0-0.2); BASOPHILS % (AUTO) 0.6 % (0-1); EOSINOPHILS # (AUTO) 0.1 X10'3 (0-0.9); EOSINOPHILS % (AUTO) 0.7 % (0-6); HEMOGLOBIN 11.1 g/dl (14.0-17.9); LYMPHOCYTES % (AUTO) 6.2 % (21-51); MEAN CORPUSCULAR HEMOGLOBIN 28.5 PG (27.0-31.0); MEAN CORPUSCULAR HGB CONC 32.8 g/dL (33.0-36.5); MEAN CORPUSCULAR VOLUME 87.1 FL (78-98); MEAN PLATELET VOLUME 8.5 FL (7.4-10.4); MONOCYTES # (AUTO) 0.8 X10'3 (0-0.9); MONOCYTES % (AUTO) 5.3 % (2-12); NEUTROPHILS # (AUTO) 13.5 X10'3 (1.8-7.7); NEUTROPHILS % (AUTO) 87.2 % (42-75); PLATELET COUNT 447 X10'3 (140-440); RED BLOOD COUNT 3.91 X10'6 (4.70-6.10); RED CELL DISTRIBUTION WIDTH 14.8 % (11.5-14.5); WHITE BLOOD COUNT 15.5 X10'3 (4.5-11.0)
[2021-07-09 10:34] LABS: ALANINE AMINOTRANSFERASE 34 U/L (12-78); ALBUMIN 1.6 G/DL (3.4-5.0); ALBUMIN/GLOBULIN RATIO 0.3 (1.1-1.5); ALKALINE PHOSPHATASE 156 IU/L (46-116); ANION GAP 8 (8-16); ASPARTATE AMINO TRANSFERASE 21 U/L (10-37); BILIRUBIN,TOTAL 0.6 MG/DL (0.1-1.0); BLOOD UREA NITROGEN 22 MG/DL (7-18); BUN/CREATININE RATIO 17.6 (5.4-32.0); CALCIUM 9.1 MG/DL (8.5-10.1); CHLORIDE 114 MMOL/L (99-107); CREATININE 1.25 MG/DL (0.60-1.10); GLUCOSE 89 MG/DL (70-104); POTASSIUM 3.4 MMOL/L (3.5-5.1); SODIUM 145 MMOL/L (135-145); TOTAL CARBON DIOXIDE 22.6 MMOL/L (24-32); TOTAL PROTEIN 7.7 G/DL (6.4-8.2); eGFR 57 ML/MIN
[2021-07-09 11:00] VITALS: BP 123/84
[2021-07-09] MEDS: K and/or MAG REPLACEMENT MC SCH ×2 (11:53→20:00)
[2021-07-09] MEDS ORDERED: magnesium Cl slow-release 64mg tablet PO PRN (12:00)
[2021-07-09] MEDS ORDERED: magnesium 4gm in 100ml NS 100 ML IV PRN (12:00)
[2021-07-09] MEDS ORDERED: potassium Cl 40MEQ/1/2NS 520ml 520 ML IV PRN (12:00)
[2021-07-09] MEDS ORDERED: potassium Cl 20 mEq SR tablet PO PRN ×2 (12:00)
[2021-07-09] MEDS ORDERED: magnesium 2GM in 50ml NS 50 ML IV PRN (12:00)
[2021-07-09] MEDS: docusate sodium 100mg/10ml UD cup PO SCH ×2 (12:01→21:30)
[2021-07-09] MEDS: folic acid 1mg/0.2ml inj IV SCH (12:01)
[2021-07-09] MEDS: apixaban 5mg tablet PO SCH ×2 (12:02→21:30)
[2021-07-09] MEDS: lansoprazole 15mg solutab PO SCH (12:02)
[2021-07-09] MEDS: amLODIPine 5mg tablet PO SCH (12:02)
[2021-07-09] MEDS: lactobacillus rhamnosus 10,000 MMU CELLS/CAPSULE PO SCH ×2 (12:02→21:30)
[2021-07-09] MEDS: venlafaxine 37.5mg tablet PO SCH ×2 (12:02→21:29)
[2021-07-09] MEDS: multivitamins, therapeutics tablet PO SCH (12:03)
[2021-07-09] MEDS: ciprofloxacin 250mg tablet PO SCH ×2 (12:03→21:30)
[2021-07-09] MEDS: thiamine 100mg tablet PO SCH ×2 (12:03→21:30)
[2021-07-09] MEDS: aspirin 81mg tab.chew PO SCH (12:03)
[2021-07-09 12:14] LABS: MAGNESIUM 2.1 MG/DL (1.5-2.4)
[2021-07-09 13:08] LABS: CLARITY,URINE CLEAR (Clear); COLOR,URINE YELLOW (Yellow); GLUCOSE, URINE 100 mg/dl (Neg); KETONES,URINE NEGATIVE (Neg); LEUKOCYTE ESTERASE ,URINE NEGATIVE (Neg); NITRITES, URINE NEGATIVE (Neg); OCCULT BLOOD,URINE SMALL (Neg); PROTEIN,URINE 30 mg/dl (Neg); UROBILINOGEN,URINE 0.2 E.U/dL (0.2-1.0)
[2021-07-09 13:12] LABS: UA COLLECTION TYPE NON-SPECIFIED
[2021-07-09 13:13] LABS: RBC,URINE 0-2 /HPF (0-2); WBC,URINE 0-4 /HPF (0-4)
[2021-07-09 13:14] LABS: BACTERIA,URINE NONE SEEN /HPF (Neg); MUCUS STRANDS NONE SEEN /LPF (Neg); SQUAMOUS EPITHELIAL CELL,UR MODERATE /LPF (FEW)
[2021-07-09 13:15] LABS: YEAST FEW /HPF (NEGATIVE)
[2021-07-09 19:44] VITALS: BP 107/52
--- NOTE | 2021-07-09 20:20 | NUR ---
Patient in room LETA 358. I have received report from VALENCIA Best and had the opportunity to ask questions and assume patient care.
--- NOTE | 2021-07-09 20:20 | NUR ---
Problems reprioritized. Patient report given, questions answered & plan of care reviewed with VALENCIA Christianson.
[2021-07-09] MEDS: insulin glargine (Lantus) pen - multi-dose SQ SCH (21:27)
--- NOTE | 2021-07-09 22:30 | NUR ---
Patient was confused, combative and restless at times. Almost pulled IV out, ripped off y port tubing. Tried to pull condom cath off multiple times.
[2021-07-09 23:37] VITALS: BP 135/59
[2021-07-10] MEDS: sodium chloride 0.45% 1,000 ML IV SCH (05:40)
[2021-07-10 05:59] LABS: BASOPHILS # (AUTO) 0.1 X10'3 (0-0.2); BASOPHILS % (AUTO) 0.7 % (0-1); EOSINOPHILS # (AUTO) 0.2 X10'3 (0-0.9); EOSINOPHILS % (AUTO) 2.4 % (0-6); HEMATOCRIT 35.2 % (42.0-52.0); HEMOGLOBIN 11.3 g/dl (14.0-17.9); LYMPHOCYTES # (AUTO) 1.3 X10'3 (1.1-4.8); MEAN CORPUSCULAR HEMOGLOBIN 28.3 PG (27.0-31.0); MEAN CORPUSCULAR HGB CONC 32.1 g/dL (33.0-36.5); MEAN CORPUSCULAR VOLUME 88.1 FL (78-98); MEAN PLATELET VOLUME 8.9 FL (7.4-10.4); MONOCYTES # (AUTO) 0.7 X10'3 (0-0.9); MONOCYTES % (AUTO) 7.1 % (2-12); NEUTROPHILS # (AUTO) 7.3 X10'3 (1.8-7.7); NEUTROPHILS % (AUTO) 75.8 % (42-75); PLATELET COUNT 421 X10'3 (140-440); RED CELL DISTRIBUTION WIDTH 14.7 % (11.5-14.5); WHITE BLOOD COUNT 9.7 X10'3 (4.5-11.0)
--- NOTE | 2021-07-10 06:24 | NUR ---
Patient in room LETA 358. I have received report from Meghan [place] and had the opportunity to ask questions and assume patient care.
[2021-07-10 06:31] LABS: ALANINE AMINOTRANSFERASE 33 U/L (12-78); ALBUMIN 1.8 G/DL (3.4-5.0); ALBUMIN/GLOBULIN RATIO 0.3 (1.1-1.5); ALKALINE PHOSPHATASE 151 IU/L (46-116); ANION GAP 9 (8-16); ASPARTATE AMINO TRANSFERASE 21 U/L (10-37); BILIRUBIN,TOTAL 0.4 MG/DL (0.1-1.0); BLOOD UREA NITROGEN 22 MG/DL (7-18); BUN/CREATININE RATIO 16.8 (5.4-32.0); CALCIUM 9.5 MG/DL (8.5-10.1); CHLORIDE 114 MMOL/L (99-107); CREATININE 1.31 MG/DL (0.60-1.10); GLUCOSE 130 MG/DL (70-104); MAGNESIUM 2.3 MG/DL (1.5-2.4); POTASSIUM 3.6 MMOL/L (3.5-5.1); SODIUM 147 MMOL/L (135-145); TOTAL CARBON DIOXIDE 23.7 MMOL/L (24-32); TOTAL PROTEIN 8.1 G/DL (6.4-8.2); eGFR 54 ML/MIN
--- NOTE | 2021-07-10 06:33 | NUR ---
Problems reprioritized. Patient report given, questions answered & plan of care reviewed with VALENCIA Garcia.
[2021-07-10] MEDS: folic acid 1mg/0.2ml inj IV SCH (07:15)
[2021-07-10] MEDS: apixaban 5mg tablet PO SCH ×2 (07:16→19:23)
[2021-07-10] MEDS: aspirin 81mg tab.chew PO SCH (07:16)
[2021-07-10] MEDS: venlafaxine 37.5mg tablet PO SCH ×2 (07:16→19:23)
[2021-07-10] MEDS: thiamine 100mg tablet PO SCH ×2 (07:16→19:23)
[2021-07-10] MEDS: multivitamins, therapeutics tablet PO SCH (07:16)
[2021-07-10] MEDS: lactobacillus rhamnosus 10,000 MMU CELLS/CAPSULE PO SCH ×2 (07:16→19:23)
[2021-07-10] MEDS: lansoprazole 15mg solutab PO SCH (07:16)
[2021-07-10] MEDS: ciprofloxacin 250mg tablet PO SCH ×2 (07:17→19:23)
[2021-07-10] MEDS: docusate sodium 100mg/10ml UD cup PO SCH ×2 (07:17→19:23)
[2021-07-10] MEDS: amLODIPine 5mg tablet PO SCH (07:17)
[2021-07-10] MEDS: K and/or MAG REPLACEMENT MC SCH ×2 (07:32→20:00)
[2021-07-10 07:34] VITALS: BP 111/52
[2021-07-10] MEDS: dextrose 5%-water 1,000 ML IV SCH ×3 (09:41→22:14)
[2021-07-10 12:12] VITALS: BP 126/76
[2021-07-10] MEDS: insulin Lispro (HumaLOG) vial - multi-dose SQ SCH ×2 (14:00→19:21)
[2021-07-10] MEDS: HYDROcodone/acetaminophen 10/325mg tab PO PRN (17:28)
[2021-07-10 18:00] VITALS: BP 127/67
--- NOTE | 2021-07-10 18:35 | NUR ---
Patient in room LETA 358. I have received report from VALENCIA Burciaga and had the opportunity to ask questions and assume patient care.
[2021-07-10 21:00] VITALS: BP 115/68
[2021-07-10] MEDS: insulin glargine (Lantus) pen - multi-dose SQ SCH (22:07)
[2021-07-10 23:32] VITALS: BP 113/72
--- NOTE | 2021-07-11 02:57 | NUR ---
Patient had broke his IV line, IV intact, redressed, new IV setup hung.
[2021-07-11] MEDS: dextrose 5%-water 1,000 ML IV SCH ×2 (02:58→12:12)
--- NOTE | 2021-07-11 06:08 | NUR ---
Problems reprioritized. Patient report given, questions answered & plan of care reviewed with VALENCIA Gregg.
[2021-07-11 06:44] LABS: BASOPHILS # (AUTO) 0.1 X10'3 (0-0.2); BASOPHILS % (AUTO) 0.6 % (0-1); EOSINOPHILS # (AUTO) 0.1 X10'3 (0-0.9); EOSINOPHILS % (AUTO) 1.4 % (0-6); HEMATOCRIT 34.2 % (42.0-52.0); LYMPHOCYTES # (AUTO) 1.4 X10'3 (1.1-4.8); LYMPHOCYTES % (AUTO) 17.3 % (21-51); MEAN CORPUSCULAR HEMOGLOBIN 28.1 PG (27.0-31.0); MEAN CORPUSCULAR HGB CONC 32.1 g/dL (33.0-36.5); MEAN CORPUSCULAR VOLUME 87.6 FL (78-98); MEAN PLATELET VOLUME 8.5 FL (7.4-10.4); MONOCYTES # (AUTO) 0.6 X10'3 (0-0.9); MONOCYTES % (AUTO) 7.4 % (2-12); NEUTROPHILS % (AUTO) 73.3 % (42-75); PLATELET COUNT 441 X10'3 (140-440); RED BLOOD COUNT 3.91 X10'6 (4.70-6.10); WHITE BLOOD COUNT 8.2 X10'3 (4.5-11.0)
--- NOTE | 2021-07-11 06:59 | NUR ---
Patient in room LETA 358. I have received report from Jennifer Walls RN and had the opportunity to ask questions and assume patient care.
[2021-07-11 07:01] LABS: ANION GAP 10 (8-16); BILIRUBIN,TOTAL 0.4 MG/DL (0.1-1.0); BLOOD UREA NITROGEN 18 MG/DL (7-18); BUN/CREATININE RATIO 12.8 (5.4-32.0); CALCIUM 8.7 MG/DL (8.5-10.1); CHLORIDE 112 MMOL/L (99-107); CREATININE 1.41 MG/DL (0.60-1.10); GLUCOSE 152 MG/DL (70-104); MAGNESIUM 2.3 MG/DL (1.5-2.4); POTASSIUM 3.7 MMOL/L (3.5-5.1); SODIUM 143 MMOL/L (135-145); eGFR 50 ML/MIN
[2021-07-11 07:02] LABS: ALANINE AMINOTRANSFERASE 27 U/L (12-78); ALBUMIN 1.7 G/DL (3.4-5.0); ALBUMIN/GLOBULIN RATIO 0.3 (1.1-1.5); ALKALINE PHOSPHATASE 150 IU/L (46-116); ASPARTATE AMINO TRANSFERASE 22 U/L (10-37); TOTAL PROTEIN 7.5 G/DL (6.4-8.2)
[2021-07-11 07:25] VITALS: BP 109/72
[2021-07-11] MEDS: K and/or MAG REPLACEMENT MC SCH ×2 (08:00→19:15)
[2021-07-11] MEDS: lansoprazole 15mg solutab PO SCH (09:09)
[2021-07-11] MEDS: venlafaxine 37.5mg tablet PO SCH ×2 (09:09→19:15)
[2021-07-11] MEDS: aspirin 81mg tab.chew PO SCH (09:10)
[2021-07-11] MEDS: apixaban 5mg tablet PO SCH ×2 (09:10→19:15)
[2021-07-11] MEDS: ciprofloxacin 250mg tablet PO SCH ×2 (09:10→19:15)
[2021-07-11] MEDS: lactobacillus rhamnosus 10,000 MMU CELLS/CAPSULE PO SCH ×2 (09:11→19:15)
[2021-07-11] MEDS: multivitamins, therapeutics tablet PO SCH (09:11)
[2021-07-11] MEDS: amLODIPine 5mg tablet PO SCH (09:12)
[2021-07-11] MEDS: folic acid 1mg/0.2ml inj IV SCH (09:12)
[2021-07-11] MEDS: docusate sodium 100mg/10ml UD cup PO SCH ×2 (09:12→19:15)
[2021-07-11] MEDS: insulin Lispro (HumaLOG) vial - multi-dose SQ SCH ×3 (09:19→19:41)
[2021-07-11] MEDS: thiamine 100mg tablet PO SCH ×2 (11:24→19:15)
[2021-07-11 12:00] VITALS: BP 122/63
--- NOTE | 2021-07-11 12:59 | NUR ---
Reassessment: Patient's PO intake has remained stable, averaging 54% since last RD assessment 07/07. D5 at 100 mL/hr was resumed providing roughly 408 kcal/day. LBM 07/10, receiving routine bowel care. Will continue to follow closely. Recommendations: 1) Continue MM5 CHO controlled diet with nectar thick liquids per ST recs 2) Encourage PO intake and assist with meals in view of ALOC 3) Monitor need for additional protein/ONS 4) Consider EN to assist with meeting estimated nutrient needs if PO intake declines; IF EN, continuous Vital AF 1.2 with goal rate of 75 mL/hr with 150 mL water flush Q4H (to adjust based on serum Na and hydration needs) 5) Continue routine Thiamine, Folic acid, and MVI for EtOH hx 6) Routine bowel care 7) Scaled weight this admit; weekly scaled weights thereafter 8) DM education once stable/alert/oriented, A1c 12.3%; written education with RD contact information placed in patient's chart Addendum: 07/11/21 at [address] Amended: Links added.
[2021-07-11 18:00] VITALS: BP 98/50
--- NOTE | 2021-07-11 18:14 | NUR ---
Patient in room LETA 358B. I have received report from VALENCIA Gregg and had the opportunity to ask questions and assume patient care.
--- NOTE | 2021-07-11 19:06 | NUR ---
Problems reprioritized. Patient report given, questions answered & plan of care reviewed with Venecia BIRMINGHAM.
[2021-07-11] MEDS: haloperidol 5mg tablet PO PRN (21:33)
--- NOTE | 2021-07-11 21:50 | NUR ---
Patient refused bedtime accu check and to get Lantus, verbalized "I dont want to be poked anymore." Patient grabbed my arm and would not let go. Thus, not able administer Lantus.
[2021-07-11] MEDS: insulin glargine (Lantus) pen - multi-dose SQ SCH (22:02)
[2021-07-11] MEDS: haloperidol lactate 5mg/ml inj IM PRN (23:58)
--- NOTE | 2021-07-12 06:12 | NUR ---
Problems reprioritized. Patient report given, questions answered & plan of care reviewed with VALENCIA Gregg.
--- NOTE | 2021-07-12 06:57 | NUR ---
Patient in room LETA 358. I have received report from Venecia BIRMINGHAM and had the opportunity to ask questions and assume patient care.
[2021-07-12 07:39] LABS: BASOPHILS % (AUTO) 0.6 % (0-1); EOSINOPHILS # (AUTO) 0.1 X10'3 (0-0.9); EOSINOPHILS % (AUTO) 1.9 % (0-6); HEMATOCRIT 31.5 % (42.0-52.0); HEMOGLOBIN 10.4 g/dl (14.0-17.9); LYMPHOCYTES # (AUTO) 1.6 X10'3 (1.1-4.8); LYMPHOCYTES % (AUTO) 26.7 % (21-51); MEAN CORPUSCULAR HEMOGLOBIN 28.6 PG (27.0-31.0); MEAN CORPUSCULAR HGB CONC 32.8 g/dL (33.0-36.5); MEAN CORPUSCULAR VOLUME 87.3 FL (78-98); MEAN PLATELET VOLUME 8.7 FL (7.4-10.4); MONOCYTES # (AUTO) 0.6 X10'3 (0-0.9); NEUTROPHILS # (AUTO) 3.5 X10'3 (1.8-7.7); NEUTROPHILS % (AUTO) 60.8 % (42-75); PLATELET COUNT 405 X10'3 (140-440); RED BLOOD COUNT 3.61 X10'6 (4.70-6.10); RED CELL DISTRIBUTION WIDTH 14.8 % (11.5-14.5); WHITE BLOOD COUNT 5.8 X10'3 (4.5-11.0)
[2021-07-12 07:57] VITALS: BP 89/60
[2021-07-12] MEDS: docusate sodium 100mg/10ml UD cup PO SCH ×2 (08:00→19:51)
[2021-07-12] MEDS: K and/or MAG REPLACEMENT MC SCH ×2 (08:00→19:51)
[2021-07-12 08:10] LABS: ALANINE AMINOTRANSFERASE 25 U/L (12-78); ALBUMIN 1.7 G/DL (3.4-5.0); ALBUMIN/GLOBULIN RATIO 0.3 (1.1-1.5); ALKALINE PHOSPHATASE 134 IU/L (46-116); ANION GAP 10 (8-16); ASPARTATE AMINO TRANSFERASE 20 U/L (10-37); BILIRUBIN,TOTAL 0.3 MG/DL (0.1-1.0); BLOOD UREA NITROGEN 16 MG/DL (7-18); BUN/CREATININE RATIO 13.8 (5.4-32.0); CALCIUM 8.7 MG/DL (8.5-10.1); CHLORIDE 115 MMOL/L (99-107); CREATININE 1.16 MG/DL (0.60-1.10); GLUCOSE 225 MG/DL (70-104); MAGNESIUM 2.1 MG/DL (1.5-2.4); POTASSIUM 3.5 MMOL/L (3.5-5.1); SODIUM 147 MMOL/L (135-145); TOTAL CARBON DIOXIDE 21.8 MMOL/L (24-32); TOTAL PROTEIN 7.2 G/DL (6.4-8.2); eGFR 63 ML/MIN
[2021-07-12] MEDS: thiamine 100mg tablet PO SCH ×2 (10:04→19:50)
[2021-07-12] MEDS: multivitamins, therapeutics tablet PO SCH (10:04)
[2021-07-12] MEDS: venlafaxine 37.5mg tablet PO SCH ×2 (10:04→19:51)
[2021-07-12] MEDS: lactobacillus rhamnosus 10,000 MMU CELLS/CAPSULE PO SCH ×2 (10:04→19:51)
[2021-07-12] MEDS: apixaban 5mg tablet PO SCH ×2 (10:04→19:51)
[2021-07-12] MEDS: aspirin 81mg tab.chew PO SCH (10:05)
[2021-07-12] MEDS: ciprofloxacin 250mg tablet PO SCH ×2 (10:05→19:51)
[2021-07-12] MEDS: lansoprazole 15mg solutab PO SCH (10:06)
[2021-07-12] MEDS: folic acid 1mg/0.2ml inj IV SCH (10:06)
[2021-07-12] MEDS: insulin Lispro (HumaLOG) vial - multi-dose SQ SCH ×3 (10:14→21:27)
[2021-07-12] MEDS: dextrose 5%-water 1,000 ML IV SCH ×3 (10:40→20:40)
[2021-07-12 13:00] VITALS: BP 112/68
--- NOTE | 2021-07-12 14:40 | NUR ---
Patient blood sugar was not treated because patient was still eating and administration of insulin would have been too late.
[2021-07-12] MEDS: magnesium hydroxide 30ml (MOM) UD suspension PO PRN (15:18)
[2021-07-12] MEDS: LORazepam 2 mg/ml vial IV PRN (17:50)
--- NOTE | 2021-07-12 18:24 | NUR ---
Problems reprioritized. Patient report given, questions answered & plan of care reviewed with Shana BIRMINGHAM.
--- NOTE | 2021-07-12 19:15 | NUR ---
Patient in room LETA 358. I have received report from Cristino [place]IRM[place] and had the opportunity to ask questions and assume patient care.
[2021-07-12] MEDS: haloperidol 5mg tablet PO PRN (19:53)
[2021-07-12 20:00] VITALS: BP 129/80
[2021-07-12] MEDS: insulin glargine (Lantus) pen - multi-dose SQ SCH (21:26)
[2021-07-13 00:01] VITALS: BP 117/50
[2021-07-13] MEDS: dextrose 5%-water 1,000 ML IV SCH ×3 (01:55→22:02)
--- NOTE | 2021-07-13 06:52 | NUR ---
Problems reprioritized. Patient report given, questions answered & plan of care reviewed with Patrica BIRM[place].
[2021-07-13 07:00] VITALS: BP 135/75
--- NOTE | 2021-07-13 07:13 | NUR ---
Patient in room LETA 358. I have received report from Shana BIRMING[place] and had the opportunity to ask questions and assume patient care.
[2021-07-13 07:42] LABS: BASOPHILS # (AUTO) 0.1 X10'3 (0-0.2); BASOPHILS % (AUTO) 0.7 % (0-1); EOSINOPHILS # (AUTO) 0.2 X10'3 (0-0.9); EOSINOPHILS % (AUTO) 1.9 % (0-6); HEMATOCRIT 31.4 % (42.0-52.0); HEMOGLOBIN 10.2 g/dl (14.0-17.9); LYMPHOCYTES % (AUTO) 23.7 % (21-51); MEAN CORPUSCULAR HEMOGLOBIN 28.2 PG (27.0-31.0); MEAN CORPUSCULAR HGB CONC 32.7 g/dL (33.0-36.5); MEAN CORPUSCULAR VOLUME 86.5 FL (78-98); MEAN PLATELET VOLUME 8.5 FL (7.4-10.4); MONOCYTES # (AUTO) 0.7 X10'3 (0-0.9); MONOCYTES % (AUTO) 7.9 % (2-12); NEUTROPHILS # (AUTO) 5.5 X10'3 (1.8-7.7); NEUTROPHILS % (AUTO) 65.8 % (42-75); PLATELET COUNT 439 X10'3 (140-440); RED BLOOD COUNT 3.63 X10'6 (4.70-6.10); RED CELL DISTRIBUTION WIDTH 14.7 % (11.5-14.5); WHITE BLOOD COUNT 8.4 X10'3 (4.5-11.0)
[2021-07-13] MEDS: K and/or MAG REPLACEMENT MC SCH ×2 (08:00→20:00)
[2021-07-13 08:03] LABS: ALANINE AMINOTRANSFERASE 30 U/L (12-78); ALBUMIN 1.8 G/DL (3.4-5.0); ALBUMIN/GLOBULIN RATIO 0.3 (1.1-1.5); ALKALINE PHOSPHATASE 135 IU/L (46-116); ANION GAP 10 (8-16); ASPARTATE AMINO TRANSFERASE 24 U/L (10-37); BILIRUBIN,TOTAL 0.3 MG/DL (0.1-1.0); BLOOD UREA NITROGEN 17 MG/DL (7-18); BUN/CREATININE RATIO 14.3 (5.4-32.0); CALCIUM 8.4 MG/DL (8.5-10.1); CHLORIDE 109 MMOL/L (99-107); CREATININE 1.19 MG/DL (0.60-1.10); GLUCOSE 199 MG/DL (70-104); SODIUM 141 MMOL/L (135-145); TOTAL CARBON DIOXIDE 21.8 MMOL/L (24-32); TOTAL PROTEIN 7.1 G/DL (6.4-8.2); eGFR 61 ML/MIN
[2021-07-13] MEDS: lactobacillus rhamnosus 10,000 MMU CELLS/CAPSULE PO SCH ×2 (08:36→21:41)
[2021-07-13] MEDS: thiamine 100mg tablet PO SCH ×2 (08:36→21:41)
[2021-07-13] MEDS: aspirin 81mg tab.chew PO SCH (08:36)
[2021-07-13] MEDS: multivitamins, therapeutics tablet PO SCH (08:37)
[2021-07-13] MEDS: lansoprazole 15mg solutab PO SCH (08:37)
[2021-07-13] MEDS: apixaban 5mg tablet PO SCH ×2 (08:37→21:40)
[2021-07-13] MEDS: venlafaxine 37.5mg tablet PO SCH ×2 (08:37→21:41)
[2021-07-13] MEDS: amLODIPine 5mg tablet PO SCH (08:37)
[2021-07-13] MEDS: ciprofloxacin 250mg tablet PO SCH (08:38)
[2021-07-13] MEDS: docusate sodium 100mg/10ml UD cup PO SCH ×2 (08:38→21:42)
[2021-07-13] MEDS: folic acid 1mg/0.2ml inj IV SCH (08:40)
[2021-07-13] MEDS: insulin Lispro (HumaLOG) vial - multi-dose SQ SCH ×3 (09:33→20:22)
[2021-07-13 11:30] VITALS: BP 117/73
--- NOTE | 2021-07-13 11:31 | NUR ---
Paged EKG dept to get 12 lead done, Dr Cheung needs results as soon as possible.
--- NOTE | 2021-07-13 14:02 | NUR ---
PAGER ID: [phone] MESSAGE: Vargas Kingck 359A- EKG was done, it has not been read by anyone. Could I bring it to you? AL 204, QRSD 169, QT 410, QTc 511, P 0, QRS -7, T 78. PLEASE ADVISE. ASIA [id number]
--- NOTE | 2021-07-13 18:49 | NUR ---
Problems reprioritized. Patient report given, questions answered & plan of care reviewed with Loulou Jamil rn.
[2021-07-13] MEDS: LORazepam 2 mg/ml vial IV PRN (19:45)
[2021-07-13 20:00] VITALS: BP 126/72
[2021-07-13] MEDS: haloperidol 5mg tablet PO PRN (21:41)
[2021-07-13] MEDS: insulin glargine (Lantus) pen - multi-dose SQ SCH (22:19)
[2021-07-14] VITALS: BP 119/74
[2021-07-14] MEDS: LORazepam 2 mg/ml vial IV PRN ×2 (05:28→15:25)
--- NOTE | 2021-07-14 06:30 | NUR ---
Problems reprioritized. Patient report given, questions answered & plan of care reviewed with WARREN BIRMINGHAM.
[2021-07-14 06:35] LABS: BASOPHILS # (AUTO) 0.1 X10'3 (0-0.2); BASOPHILS % (AUTO) 0.8 % (0-1); EOSINOPHILS # (AUTO) 0.2 X10'3 (0-0.9); HEMATOCRIT 32.9 % (42.0-52.0); HEMOGLOBIN 10.8 g/dl (14.0-17.9); LYMPHOCYTES % (AUTO) 21.3 % (21-51); MEAN CORPUSCULAR HEMOGLOBIN 28.2 PG (27.0-31.0); MEAN CORPUSCULAR HGB CONC 32.9 g/dL (33.0-36.5); MEAN CORPUSCULAR VOLUME 85.9 FL (78-98); MEAN PLATELET VOLUME 8.2 FL (7.4-10.4); MONOCYTES # (AUTO) 0.8 X10'3 (0-0.9); MONOCYTES % (AUTO) 8.2 % (2-12); NEUTROPHILS # (AUTO) 6.2 X10'3 (1.8-7.7); NEUTROPHILS % (AUTO) 67.7 % (42-75); PLATELET COUNT 473 X10'3 (140-440); RED BLOOD COUNT 3.82 X10'6 (4.70-6.10); RED CELL DISTRIBUTION WIDTH 14.7 % (11.5-14.5); WHITE BLOOD COUNT 9.2 X10'3 (4.5-11.0)
--- NOTE | 2021-07-14 06:45 | NUR ---
Patient in room [facility]. I have received report from VALENCIA HO and had the opportunity to ask questions and assume patient care.
[2021-07-14 07:00] VITALS: BP 114/72
[2021-07-14 07:13] LABS: ALANINE AMINOTRANSFERASE 39 U/L (12-78); ALBUMIN 2.1 G/DL (3.4-5.0); ALBUMIN/GLOBULIN RATIO 0.3 (1.1-1.5); ALKALINE PHOSPHATASE 140 IU/L (46-116); ANION GAP 12 (8-16); ASPARTATE AMINO TRANSFERASE 30 U/L (10-37); BILIRUBIN,TOTAL 0.3 MG/DL (0.1-1.0); BLOOD UREA NITROGEN 18 MG/DL (7-18); BUN/CREATININE RATIO 13.6 (5.4-32.0); CALCIUM 9.2 MG/DL (8.5-10.1); CHLORIDE 108 MMOL/L (99-107); CREATININE 1.32 MG/DL (0.60-1.10); GLUCOSE 194 MG/DL (70-104); MAGNESIUM 2.2 MG/DL (1.5-2.4); POTASSIUM 3.6 MMOL/L (3.5-5.1); SODIUM 142 MMOL/L (135-145); TOTAL PROTEIN 8.2 G/DL (6.4-8.2); eGFR 54 ML/MIN
[2021-07-14] MEDS: K and/or MAG REPLACEMENT MC SCH ×2 (08:00→20:00)
[2021-07-14] MEDS: CefTRIAXone 2gm/D5W 50ml BAG 50 ML IV SCH (08:17)
[2021-07-14] MEDS: venlafaxine 37.5mg tablet PO SCH ×2 (08:17→19:09)
[2021-07-14] MEDS: thiamine 100mg tablet PO SCH ×2 (08:17→19:09)
[2021-07-14] MEDS: haloperidol 5mg tablet PO PRN (08:17)
[2021-07-14] MEDS: lactobacillus rhamnosus 10,000 MMU CELLS/CAPSULE PO SCH ×2 (08:17→19:09)
[2021-07-14] MEDS: multivitamins, therapeutics tablet PO SCH (08:17)
[2021-07-14] MEDS: amLODIPine 5mg tablet PO SCH (08:18)
[2021-07-14] MEDS: lansoprazole 15mg solutab PO SCH (08:19)
[2021-07-14] MEDS: aspirin 81mg tab.chew PO SCH (08:19)
[2021-07-14] MEDS: folic acid 1mg/0.2ml inj IV SCH (08:19)
[2021-07-14] MEDS: apixaban 5mg tablet PO SCH ×2 (08:19→19:09)
[2021-07-14] MEDS: docusate sodium 100mg/10ml UD cup PO SCH ×2 (08:19→19:09)
[2021-07-14] MEDS: dextrose 5%-water 1,000 ML IV SCH (08:19)
--- NOTE | 2021-07-14 09:50 | NUR ---
Reassessment: Pt remains A/O x 2 and confused per physical assessment though with significant improvement in PO intake with mostly 100% PO intake since last RD assessment 07/11. LBM 07/13, receiving routine and PRN bowel care. No nutrition intervention implemented at this time. Will continue to follow. Recommendations: 1) Continue MM5 CHO controlled diet with nectar thick liquids per ST recs 2) Encourage PO intake and assist with meals in view of ALOC 3) Monitor need for additional protein/ONS 4) Continue routine Thiamine, Folic acid, and MVI for EtOH hx 5) Routine bowel care 6) Scaled weight this admit; weekly scaled weights thereafter 7) DM education once stable/alert/oriented, A1c 12.3%; written education with RD contact information placed in patient's chart Addendum: 07/14/21 at [address] Amended: Links added.
[2021-07-14 12:00] VITALS: BP 105/64
[2021-07-14 18:00] VITALS: BP 125/77
--- NOTE | 2021-07-14 18:45 | NUR ---
Problems reprioritized. Patient report given, questions answered & plan of care reviewed with VALENCIA SY.
--- NOTE | 2021-07-14 18:52 | NUR ---
Patient in room [facility]. I have received report from WARREN BIRMINGHAM and had the opportunity to ask questions and assume patient care.
[2021-07-14] MEDS: insulin Lispro (HumaLOG) vial - multi-dose SQ SCH (19:01)
[2021-07-14] MEDS: haloperidol lactate 5mg/ml inj IM PRN (19:09)
[2021-07-14] MEDS: HYDROcodone/acetaminophen 10/325mg tab PO PRN (19:17)
[2021-07-14] MEDS: insulin glargine (Lantus) pen - multi-dose SQ SCH (22:06)
[2021-07-15] VITALS: BP 144/81
--- NOTE | 2021-07-15 06:45 | NUR ---
PATIENT HAS BEEN OFF RESTRAINTS FROM 0400 AND WILL CONTINUE TO MONITOR FOR AGGRESSION.
--- NOTE | 2021-07-15 06:48 | NUR ---
Problems reprioritized. Patient report given, questions answered & plan of care reviewed with FLACA RN.
[2021-07-15 07:00] VITALS: BP 118/71
--- NOTE | 2021-07-15 07:34 | NUR ---
Patient in room [facility]. I have received report from Denisha BIRMINGHAM and had the opportunity to ask questions and assume patient care.
[2021-07-15] MEDS: K and/or MAG REPLACEMENT MC SCH ×2 (08:00→19:20)
[2021-07-15] MEDS: CefTRIAXone 2gm/D5W 50ml BAG 50 ML IV SCH (08:26)
[2021-07-15] MEDS: apixaban 5mg tablet PO SCH ×2 (08:26→19:43)
[2021-07-15] MEDS: lactobacillus rhamnosus 10,000 MMU CELLS/CAPSULE PO SCH ×2 (08:26→19:43)
[2021-07-15] MEDS: docusate sodium 100mg/10ml UD cup PO SCH ×2 (08:26→19:43)
[2021-07-15] MEDS: thiamine 100mg tablet PO SCH ×2 (08:26→19:43)
[2021-07-15] MEDS: aspirin 81mg tab.chew PO SCH (08:27)
[2021-07-15] MEDS: venlafaxine 37.5mg tablet PO SCH ×2 (08:27→19:43)
[2021-07-15] MEDS: lansoprazole 15mg solutab PO SCH (08:27)
[2021-07-15] MEDS: multivitamins, therapeutics tablet PO SCH (08:28)
[2021-07-15] MEDS: amLODIPine 5mg tablet PO SCH (08:28)
[2021-07-15] MEDS: insulin Lispro (HumaLOG) vial - multi-dose SQ SCH ×2 (08:32→12:56)
[2021-07-15 12:00] VITALS: BP 137/73
[2021-07-15] MEDS: folic acid 1mg/0.2ml inj IV SCH (12:51)
--- NOTE | 2021-07-15 13:50 | NUR ---
No labs ordered today
[2021-07-15 18:00] VITALS: BP 128/71
--- NOTE | 2021-07-15 18:18 | NUR ---
PAGER ID: [phone] MESSAGE: Kitty-Surg [phone] Re: [facility] can you renew Restraints please
--- NOTE | 2021-07-15 18:50 | NUR ---
Problems reprioritized. Patient report given, questions answered & plan of care reviewed with DOV RN and Pitancduke RN.
--- NOTE | 2021-07-15 19:04 | NUR ---
Patient in room [facility]. I have received report from DON BIRMINGHAM and had the opportunity to ask questions and assume patient care.
--- NOTE | 2021-07-15 22:25 | NUR ---
Spoke to Dr. Alexandre about patient receiving 77 units lantus because patient is now saline locked and not receiving d5 fluids, was ordered to administer 65 units lantus instead.
[2021-07-15] MEDS: insulin glargine (Lantus) pen - multi-dose SQ SCH (23:22)
[2021-07-15] MEDS: haloperidol lactate 5mg/ml inj IM PRN (23:25)
[2021-07-16] VITALS: BP 120/71
--- NOTE | 2021-07-16 05:58 | NUR ---
WRONG ENTRY FOR INTAKES AND OUTPUT Addendum: 07/16/21 at 0558 by Denisha Dickey RN Amended: Links added.
--- NOTE | 2021-07-16 07:09 | NUR ---
Patient in room [facility]. I have received report from Paolo BIRMINGHAM and had the opportunity to ask questions and assume patient care.
[2021-07-16] MEDS: LORazepam 2 mg/ml vial IV PRN ×2 (07:20→21:27)
[2021-07-16] MEDS: K and/or MAG REPLACEMENT MC SCH ×2 (08:00→20:00)
--- NOTE | 2021-07-16 08:33 | NUR ---
Patient refused vital signs this morning
[2021-07-16] MEDS: venlafaxine 37.5mg tablet PO SCH ×2 (10:09→21:26)
[2021-07-16] MEDS: aspirin 81mg tab.chew PO SCH (10:09)
[2021-07-16] MEDS: apixaban 5mg tablet PO SCH ×2 (10:09→21:26)
[2021-07-16] MEDS: thiamine 100mg tablet PO SCH ×2 (10:09→21:26)
[2021-07-16] MEDS: multivitamins, therapeutics tablet PO SCH (10:10)
[2021-07-16] MEDS: amLODIPine 5mg tablet PO SCH (10:10)
[2021-07-16] MEDS: lactobacillus rhamnosus 10,000 MMU CELLS/CAPSULE PO SCH ×2 (10:10→21:26)
[2021-07-16] MEDS: lansoprazole 15mg solutab PO SCH (10:11)
[2021-07-16] MEDS: CefTRIAXone 2gm/D5W 50ml BAG 50 ML IV SCH (10:12)
[2021-07-16] MEDS: folic acid 1mg/0.2ml inj IV SCH (10:12)
[2021-07-16] MEDS: docusate sodium 100mg/10ml UD cup PO SCH ×2 (10:12→21:27)
[2021-07-16] MEDS: insulin Lispro (HumaLOG) vial - multi-dose SQ SCH ×2 (10:25→21:48)
[2021-07-16 12:00] VITALS: BP 118/63
--- NOTE | 2021-07-16 18:38 | NUR ---
Problems reprioritized. Patient report given, questions answered & plan of care reviewed with Meghan BIRMINGHAM.
--- NOTE | 2021-07-16 18:41 | NUR ---
Patient in room [facility]. I have received report from VALENCIA Gregg and had the opportunity to ask questions and assume patient care.
[2021-07-16 19:00] VITALS: BP 110/68
--- NOTE | 2021-07-16 19:35 | NUR ---
Patient is refusing all meds at this time and states that "He wants to leave." Charge Michelle talking with patient now.
[2021-07-16] MEDS: insulin glargine (Lantus) pen - multi-dose SQ SCH (21:49)
[2021-07-17] VITALS: BP 129/70
[2021-07-17] MEDS: HYDROcodone/acetaminophen 10/325mg tab PO PRN (04:17)
[2021-07-17] MEDS: LORazepam 2 mg/ml vial IV PRN ×3 (05:05→22:12)
--- NOTE | 2021-07-17 06:14 | NUR ---
Patient in room [facility]. I have received report from Meghan BIRMING[place]AM and had the opportunity to ask questions and assume patient care.
--- NOTE | 2021-07-17 06:15 | NUR ---
Problems reprioritized. Patient report given, questions answered & plan of care reviewed with VALENCIA Gregg.
[2021-07-17] MEDS: dextrose ORAL solution 15 GM/59 ML bottle PO PRN (07:41)
[2021-07-17] MEDS: K and/or MAG REPLACEMENT MC SCH ×2 (08:00→20:00)
[2021-07-17] MEDS: apixaban 5mg tablet PO SCH ×2 (08:08→20:47)
[2021-07-17] MEDS: lactobacillus rhamnosus 10,000 MMU CELLS/CAPSULE PO SCH ×2 (08:08→20:47)
[2021-07-17] MEDS: multivitamins, therapeutics tablet PO SCH (08:08)
[2021-07-17] MEDS: aspirin 81mg tab.chew PO SCH (08:08)
[2021-07-17] MEDS: thiamine 100mg tablet PO SCH ×2 (08:09→20:47)
[2021-07-17] MEDS: amLODIPine 5mg tablet PO SCH (08:09)
[2021-07-17] MEDS: venlafaxine 37.5mg tablet PO SCH ×2 (08:09→20:47)
[2021-07-17] MEDS: lansoprazole 15mg solutab PO SCH (08:10)
[2021-07-17] MEDS: docusate sodium 100mg/10ml UD cup PO SCH ×2 (08:10→20:47)
[2021-07-17] MEDS: folic acid 1mg/0.2ml inj IV SCH (08:10)
[2021-07-17] MEDS: CefTRIAXone 2gm/D5W 50ml BAG 50 ML IV SCH (08:12)
[2021-07-17 12:37] VITALS: BP 131/71
--- NOTE | 2021-07-17 14:00 | NUR ---
Patient was not treated for his blood glucose at this time will resume at the dinner time interval.
[2021-07-17 18:00] VITALS: BP 125/74
--- NOTE | 2021-07-17 18:33 | NUR ---
Patient in room [facility]. I have received report from VALENCIA Gregg and had the opportunity to ask questions and assume patient care.
--- NOTE | 2021-07-17 18:51 | NUR ---
Problems reprioritized. Patient report given, questions answered & plan of care reviewed with Meghan BIRMINGHAM.
[2021-07-17] MEDS: insulin glargine (Lantus) pen - multi-dose SQ SCH (21:17)
[2021-07-18] VITALS: BP 123/67
--- NOTE | 2021-07-18 06:27 | NUR ---
Problems reprioritized. Patient report given, questions answered & plan of care reviewed with VALENCIA Sánchez.
--- NOTE | 2021-07-18 06:50 | NUR ---
Patient in room [facility]. I have received report from Meghan BIRMING[place]AM and had the opportunity to ask questions and assume patient care.
[2021-07-18] MEDS: haloperidol lactate 5mg/ml inj IM PRN (07:06)
--- NOTE | 2021-07-18 07:10 | NUR ---
Patient refused blood sugar check this am. Patient repeatedly asking me to leave the room. Patient is alert but confused. He could not tell me where he is at. He kept telling me " you are disrespecting me!" I replied to him by saying "I am not disrespecting you I am your nurse and I 'm here to take care of you today!" Patient getting upset to me. 2 other nurses, the charge nurse Cleopatra, and the BICYCLE SUBASSEMBLER Deepali helped me get the patient back to bed. Haldol IM was given.
[2021-07-18] MEDS: lansoprazole 15mg solutab PO SCH (07:30)
[2021-07-18] MEDS: lactobacillus rhamnosus 10,000 MMU CELLS/CAPSULE PO SCH ×2 (08:00→20:41)
[2021-07-18] MEDS: amLODIPine 5mg tablet PO SCH (08:00)
[2021-07-18] MEDS: docusate sodium 100mg/10ml UD cup PO SCH ×2 (08:00→20:40)
[2021-07-18] MEDS: multivitamins, therapeutics tablet PO SCH (08:00)
[2021-07-18] MEDS: thiamine 100mg tablet PO SCH ×2 (08:00→20:41)
[2021-07-18] MEDS: apixaban 5mg tablet PO SCH ×2 (08:00→20:41)
[2021-07-18] MEDS: aspirin 81mg tab.chew PO SCH (08:00)
[2021-07-18] MEDS: venlafaxine 37.5mg tablet PO SCH ×2 (08:00→20:41)
[2021-07-18] MEDS: K and/or MAG REPLACEMENT MC SCH ×2 (08:00→20:00)
--- NOTE | 2021-07-18 09:25 | NUR ---
Patient sleeping comfortably at this time
--- NOTE | 2021-07-18 09:37 | NUR ---
No insulin dose given this am because patient refused blood sugar checked and he did not ate his breakfast.
[2021-07-18] MEDS: folic acid 1mg/0.2ml inj IV SCH (09:51)
[2021-07-18] MEDS: CefTRIAXone 2gm/D5W 50ml BAG 50 ML IV SCH (10:34)
--- NOTE | 2021-07-18 10:43 | NUR ---
Patient still sleepy at this time and uncooperative, unable to administer all PO meds
[2021-07-18] MEDS: dextrose ORAL solution 15 GM/59 ML bottle PO PRN ×2 (11:37→11:57)
--- NOTE | 2021-07-18 13:12 | NUR ---
I was trying to feed the patient but will not open his mouth and still very sleepy.
--- NOTE | 2021-07-18 14:05 | NUR ---
Reassessment: Pt remains A/O x 2 and confused per physical assessment though with significant improvement in PO intake with mostly 100% PO intake since last RD assessment 07/11. LBM 07/13, receiving routine and PRN bowel care. No nutrition intervention implemented at this time. Will continue to follow. Recommendations: 1) Continue SB6 CHO controlled diet with thin liquids per ST recs 2) Encourage PO intake and assist with meals in view of ALOC 3) Monitor need for additional protein/ONS 4) Continue routine Thiamine, Folic acid, and MVI for EtOH hx 5) Routine bowel care 6) Scaled weight this admit; weekly scaled weights thereafter 7) DM education once stable/alert/oriented, A1c 12.3%; written education with RD contact information placed in patient's chart Addendum: 07/18/21 at [address] Amended: Links added.
--- NOTE | 2021-07-18 14:17 | NUR ---
Patient has been refusing vital signs this am and mid-day vital signs
[2021-07-18] MEDS: LORazepam 2 mg/ml vial IV PRN ×2 (15:39→23:30)
[2021-07-18 18:00] VITALS: BP 125/67
--- NOTE | 2021-07-18 18:54 | NUR ---
Problems reprioritized. Patient report given, questions answered & plan of care reviewed with Meghan BIRMINGHAM.
[2021-07-18] MEDS: insulin glargine (Lantus) pen - multi-dose SQ SCH (21:00)
[2021-07-19] VITALS: BP 131/103
--- NOTE | 2021-07-19 06:40 | NUR ---
Problems reprioritized. Patient report given, questions answered & plan of care reviewed with [VALENCIA Sánchez].
[2021-07-19 07:00] VITALS: BP_SYST 126; BP_SYST 134; BP_DIAS 62; BP_DIAS 63
[2021-07-19] MEDS: dextrose ORAL solution 15 GM/59 ML bottle PO PRN ×2 (07:06→07:24)
--- NOTE | 2021-07-19 07:27 | NUR ---
Patient's blood sugar this am was low 64mg/dl, 15 g of Glucose shot given to patient as per protocol. Patient was alert and was asking for food. Patient was given turkey sandwich too. Rechecked blood sugar 15 minutes after, the repeat blood sugar was 55mg/dl, patient finishing up the sandwich at this time, another 15 gms of Glucose shot given to patient. Will keep rechecking until blood sugar is within the normal.
[2021-07-19] MEDS: folic acid 1mg/0.2ml inj IV SCH (07:34)
[2021-07-19] MEDS: aspirin 81mg tab.chew PO SCH (07:34)
[2021-07-19] MEDS: CefTRIAXone 2gm/D5W 50ml BAG 50 ML IV SCH (07:34)
[2021-07-19] MEDS: lansoprazole 15mg solutab PO SCH (07:35)
[2021-07-19] MEDS: thiamine 100mg tablet PO SCH ×2 (07:35→20:00)
[2021-07-19] MEDS: apixaban 5mg tablet PO SCH ×2 (07:35→22:07)
[2021-07-19] MEDS: docusate sodium 100mg/10ml UD cup PO SCH ×2 (07:35→20:00)
[2021-07-19] MEDS: venlafaxine 37.5mg tablet PO SCH ×2 (07:35→22:09)
[2021-07-19] MEDS: lactobacillus rhamnosus 10,000 MMU CELLS/CAPSULE PO SCH ×2 (07:35→22:07)
--- NOTE | 2021-07-19 07:46 | NUR ---
Repeat blood sugar was 72mg/dll, the protocol for Glucose shot is 70mg/dl and below. Patient was asking for another sandwich so I gave extra turkey sandwich and the breakfast tray will be serve as soon as its available.
[2021-07-19] MEDS: amLODIPine 5mg tablet PO SCH (07:50)
[2021-07-19] MEDS: K and/or MAG REPLACEMENT MC SCH ×2 (08:00→20:00)
[2021-07-19] MEDS: multivitamins, therapeutics tablet PO SCH (08:00)
--- NOTE | 2021-07-19 09:52 | NUR ---
Patient sleeping soundly at this time. PO Ativan returned to [facility] Addendum: 07/19/21 at 0957 by Princess Dotson RN Correction to the above note, it was PO Haldol that was pulled out and returned to [facility] not Ativan
[2021-07-19 11:00] VITALS: BP 118/64
[2021-07-19] MEDS: haloperidol 5mg tablet PO PRN ×2 (14:38→22:05)
--- NOTE | 2021-07-19 18:36 | NUR ---
Patient in room [facility]. I have received report from Princess BIRMING[place]AM and had the opportunity to ask questions and assume patient care.
--- NOTE | 2021-07-19 18:48 | NUR ---
Problems reprioritized. Patient report given, questions answered & plan of care reviewed with Shana BIRMINGHAM.
[2021-07-19 19:00] VITALS: BP 143/77
[2021-07-19] MEDS: LORazepam 2 mg/ml vial IV PRN (20:45)
[2021-07-19] MEDS: insulin Lispro (HumaLOG) vial - multi-dose SQ SCH (22:15)
[2021-07-19] MEDS: insulin glargine (Lantus) pen - multi-dose SQ SCH (22:17)
[2021-07-20] VITALS: BP 113/74
[2021-07-20] MEDS: LORazepam 2 mg/ml vial IV PRN ×4 (00:48→19:52)
--- NOTE | 2021-07-20 06:56 | NUR ---
Problems reprioritized. Patient report given, questions answered & plan of care reviewed with Brenda BIRMINGHAM.
[2021-07-20 07:00] VITALS: BP 126/71
--- NOTE | 2021-07-20 07:00 | NUR ---
Patient in room [facility]. I have received report from Shana BIRMINGHAM and had the opportunity to ask questions and assume patient care.
[2021-07-20] MEDS: K and/or MAG REPLACEMENT MC SCH ×2 (08:00→20:00)
[2021-07-20] MEDS: insulin Lispro (HumaLOG) vial - multi-dose SQ SCH ×3 (09:46→21:34)
[2021-07-20 11:00] VITALS: BP 103/70
[2021-07-20] MEDS: venlafaxine 37.5mg tablet PO SCH ×2 (11:23→21:21)
[2021-07-20] MEDS: apixaban 5mg tablet PO SCH ×2 (11:23→21:21)
[2021-07-20] MEDS: lansoprazole 15mg solutab PO SCH (11:23)
[2021-07-20] MEDS: thiamine 100mg tablet PO SCH ×2 (11:23→21:21)
[2021-07-20] MEDS: aspirin 81mg tab.chew PO SCH (11:23)
[2021-07-20] MEDS: lactobacillus rhamnosus 10,000 MMU CELLS/CAPSULE PO SCH ×2 (11:23→21:21)
[2021-07-20] MEDS: multivitamins, therapeutics tablet PO SCH (11:23)
[2021-07-20] MEDS: docusate sodium 100mg/10ml UD cup PO SCH ×2 (11:32→21:21)
[2021-07-20] MEDS: amLODIPine 5mg tablet PO SCH (11:33)
[2021-07-20] MEDS: folic acid 1mg/0.2ml inj IV SCH (11:34)
--- NOTE | 2021-07-20 18:30 | NUR ---
Patient in room [facility]. I have received report from Brenda [place]IRMING[place] and had the opportunity to ask questions and assume patient care.
--- NOTE | 2021-07-20 18:45 | NUR ---
Problems reprioritized. Patient report given, questions answered & plan of care reviewed with Shana BIRMINGHAM.
[2021-07-20 19:00] VITALS: BP 132/67
[2021-07-20] MEDS: haloperidol 5mg tablet PO PRN (21:20)
[2021-07-20] MEDS: insulin glargine (Lantus) pen - multi-dose SQ SCH (21:32)
[2021-07-21] VITALS: BP 131/71
[2021-07-21] MEDS: LORazepam 2 mg/ml vial IV PRN ×3 (00:32→10:45)
--- NOTE | 2021-07-21 06:25 | NUR ---
Problems reprioritized. Patient report given, questions answered & plan of care reviewed with Edouard BIRMINGHAM.
--- NOTE | 2021-07-21 06:28 | NUR ---
Patient in room [facility]. I have received report from VALENCIA Saldana and had the opportunity to ask questions and assume patient care.
[2021-07-21 07:18] LABS: BASOPHILS # (AUTO) 0.1 X10'3 (0-0.2); EOSINOPHILS # (AUTO) 0.2 X10'3 (0-0.9); EOSINOPHILS % (AUTO) 4.1 % (0-6); HEMATOCRIT 29.8 % (42.0-52.0); HEMOGLOBIN 9.7 g/dl (14.0-17.9); LYMPHOCYTES # (AUTO) 1.7 X10'3 (1.1-4.8); LYMPHOCYTES % (AUTO) 28.5 % (21-51); MEAN CORPUSCULAR HEMOGLOBIN 28.5 PG (27.0-31.0); MEAN CORPUSCULAR HGB CONC 32.5 g/dL (33.0-36.5); MEAN CORPUSCULAR VOLUME 87.6 FL (78-98); MONOCYTES # (AUTO) 0.4 X10'3 (0-0.9); NEUTROPHILS # (AUTO) 3.6 X10'3 (1.8-7.7); NEUTROPHILS % (AUTO) 59.4 % (42-75); PLATELET COUNT 315 X10'3 (140-440); RED BLOOD COUNT 3.41 X10'6 (4.70-6.10); RED CELL DISTRIBUTION WIDTH 15.2 % (11.5-14.5); WHITE BLOOD COUNT 6.1 X10'3 (4.5-11.0)
[2021-07-21 07:59] LABS: ALBUMIN 2.1 G/DL (3.4-5.0); ANION GAP 10 (8-16); BLOOD UREA NITROGEN 18 MG/DL (7-18); BUN/CREATININE RATIO 15.3 (5.4-32.0); CALCIUM 9.2 MG/DL (8.5-10.1); CHLORIDE 114 MMOL/L (99-107); CREATININE 1.18 MG/DL (0.60-1.10); GLUCOSE 231 MG/DL (70-104); SODIUM 147 MMOL/L (135-145); TOTAL CARBON DIOXIDE 22.6 MMOL/L (24-32); eGFR 61 ML/MIN
[2021-07-21 08:00] VITALS: BP 148/80
[2021-07-21] MEDS: K and/or MAG REPLACEMENT MC SCH ×2 (08:00→20:00)
[2021-07-21] MEDS: venlafaxine 37.5mg tablet PO SCH ×2 (08:42→21:16)
[2021-07-21] MEDS: aspirin 81mg tab.chew PO SCH (08:42)
[2021-07-21] MEDS: multivitamins, therapeutics tablet PO SCH (08:43)
[2021-07-21] MEDS: thiamine 100mg tablet PO SCH ×2 (08:43→21:22)
[2021-07-21] MEDS: docusate sodium 100mg/10ml UD cup PO SCH ×2 (08:43→21:15)
[2021-07-21] MEDS: folic acid 1mg/0.2ml inj IV SCH (08:43)
[2021-07-21] MEDS: apixaban 5mg tablet PO SCH ×2 (08:43→21:15)
[2021-07-21] MEDS: lactobacillus rhamnosus 10,000 MMU CELLS/CAPSULE PO SCH ×2 (08:43→21:15)
[2021-07-21] MEDS: amLODIPine 5mg tablet PO SCH (08:46)
[2021-07-21] MEDS: lansoprazole 15mg solutab PO SCH (09:08)
[2021-07-21] MEDS: insulin Lispro (HumaLOG) vial - multi-dose SQ SCH ×2 (10:13→14:23)
--- NOTE | 2021-07-21 18:20 | NUR ---
Problems reprioritized. Patient report given, questions answered & plan of care reviewed with VALENCIA Lea.
--- NOTE | 2021-07-21 18:30 | NUR ---
Patient in room [facility]. I have received report from Edouard BIRMING[place] and had the opportunity to ask questions and assume patient care.
[2021-07-21 19:00] VITALS: BP 101/62
[2021-07-21] MEDS: insulin glargine (Lantus) pen - multi-dose SQ SCH (21:32)
[2021-07-22] VITALS: BP 116/65
--- NOTE | 2021-07-22 06:30 | NUR ---
Problems reprioritized. Patient report given, questions answered & plan of care reviewed with Edouard BIRMINGHAM.
[2021-07-22] MEDS: docusate sodium 100mg/10ml UD cup PO SCH ×2 (07:48→19:09)
[2021-07-22] MEDS: thiamine 100mg tablet PO SCH ×2 (07:49→19:07)
[2021-07-22] MEDS: amLODIPine 5mg tablet PO SCH (07:49)
[2021-07-22] MEDS: apixaban 5mg tablet PO SCH ×2 (07:49→19:07)
[2021-07-22] MEDS: lansoprazole 15mg solutab PO SCH (07:49)
[2021-07-22] MEDS: lactobacillus rhamnosus 10,000 MMU CELLS/CAPSULE PO SCH ×2 (07:49→19:07)
[2021-07-22] MEDS: multivitamins, therapeutics tablet PO SCH (07:49)
[2021-07-22] MEDS: venlafaxine 37.5mg tablet PO SCH ×2 (07:49→19:07)
[2021-07-22] MEDS: aspirin 81mg tab.chew PO SCH (07:49)
[2021-07-22] MEDS: folic acid 1mg/0.2ml inj IV SCH (07:51)
[2021-07-22 08:00] VITALS: BP 113/64
[2021-07-22] MEDS: K and/or MAG REPLACEMENT MC SCH ×2 (08:00→20:00)
[2021-07-22] MEDS: insulin Lispro (HumaLOG) vial - multi-dose SQ SCH ×2 (09:15→18:47)
--- NOTE | 2021-07-22 12:56 | NUR ---
Patient sitting up in bed eating lunch meal.
[2021-07-22 13:05] VITALS: BP 122/82
[2021-07-22 13:47] LABS: ALBUMIN 2.3 G/DL (3.4-5.0); ANION GAP 8 (8-16); BLOOD UREA NITROGEN 20 MG/DL (7-18); BUN/CREATININE RATIO 17.7 (5.4-32.0); CHLORIDE 107 MMOL/L (99-107); CREATININE 1.13 MG/DL (0.60-1.10); GLUCOSE 73 MG/DL (70-104); POTASSIUM 4.3 MMOL/L (3.5-5.1); SODIUM 142 MMOL/L (135-145); TOTAL CARBON DIOXIDE 26.7 MMOL/L (24-32); eGFR 65 ML/MIN
[2021-07-22 13:51] LABS: BASOPHILS # (AUTO) 0.1 X10'3 (0-0.2); BASOPHILS % (AUTO) 0.5 % (0-1); EOSINOPHILS # (AUTO) 0.3 X10'3 (0-0.9); EOSINOPHILS % (AUTO) 3.3 % (0-6); HEMATOCRIT 31.8 % (42.0-52.0); HEMOGLOBIN 10.5 g/dl (14.0-17.9); LYMPHOCYTES # (AUTO) 2.6 X10'3 (1.1-4.8); LYMPHOCYTES % (AUTO) 27.4 % (21-51); MEAN CORPUSCULAR HEMOGLOBIN 28.7 PG (27.0-31.0); MEAN PLATELET VOLUME 7.4 FL (7.4-10.4); MONOCYTES # (AUTO) 0.7 X10'3 (0-0.9); MONOCYTES % (AUTO) 7.1 % (2-12); NEUTROPHILS # (AUTO) 5.9 X10'3 (1.8-7.7); NEUTROPHILS % (AUTO) 61.7 % (42-75); PLATELET COUNT 383 X10'3 (140-440); RED BLOOD COUNT 3.66 X10'6 (4.70-6.10); RED CELL DISTRIBUTION WIDTH 15.5 % (11.5-14.5); WHITE BLOOD COUNT 9.5 X10'3 (4.5-11.0)
[2021-07-22] MEDS: LORazepam 2 mg/ml vial IV PRN (17:30)
[2021-07-22 18:00] VITALS: BP 110/75
[2021-07-22] MEDS: haloperidol 5mg tablet PO PRN (18:40)
[2021-07-22] MEDS: insulin glargine (Lantus) pen - multi-dose SQ SCH (20:38)
[2021-07-22 23:45] VITALS: BP 113/69
[2021-07-23 05:43] LABS: BASOPHILS % (AUTO) 0.5 % (0-1); EOSINOPHILS # (AUTO) 0.3 X10'3 (0-0.9); EOSINOPHILS % (AUTO) 3.2 % (0-6); HEMATOCRIT 29.4 % (42.0-52.0); HEMOGLOBIN 9.6 g/dl (14.0-17.9); LYMPHOCYTES # (AUTO) 2.2 X10'3 (1.1-4.8); LYMPHOCYTES % (AUTO) 25.8 % (21-51); MEAN CORPUSCULAR HEMOGLOBIN 28.3 PG (27.0-31.0); MEAN CORPUSCULAR HGB CONC 32.8 g/dL (33.0-36.5); MEAN CORPUSCULAR VOLUME 86.1 FL (78-98); MEAN PLATELET VOLUME 7.7 FL (7.4-10.4); MONOCYTES # (AUTO) 0.6 X10'3 (0-0.9); MONOCYTES % (AUTO) 7.3 % (2-12); NEUTROPHILS # (AUTO) 5.3 X10'3 (1.8-7.7); NEUTROPHILS % (AUTO) 63.2 % (42-75); PLATELET COUNT 323 X10'3 (140-440); RED BLOOD COUNT 3.41 X10'6 (4.70-6.10); RED CELL DISTRIBUTION WIDTH 15.3 % (11.5-14.5); WHITE BLOOD COUNT 8.4 X10'3 (4.5-11.0)
[2021-07-23] MEDS: LORazepam 2 mg/ml vial IV PRN ×2 (06:02→16:45)
[2021-07-23 06:16] LABS: ALBUMIN 2.1 G/DL (3.4-5.0); ANION GAP 10 (8-16); BLOOD UREA NITROGEN 22 MG/DL (7-18); BUN/CREATININE RATIO 17.3 (5.4-32.0); CHLORIDE 106 MMOL/L (99-107); CREATININE 1.27 MG/DL (0.60-1.10); GLUCOSE 243 MG/DL (70-104); SODIUM 140 MMOL/L (135-145); eGFR 56 ML/MIN
--- NOTE | 2021-07-23 06:19 | NUR ---
Problems reprioritized. Patient report given, questions answered & plan of care reviewed with VALENCIA Sánchez.
--- NOTE | 2021-07-23 06:40 | NUR ---
Patient in room [facility]. I have received report from Edouard BIRMING[place] and had the opportunity to ask questions and assume patient care.
[2021-07-23 07:00] VITALS: BP 100/67
[2021-07-23] MEDS: K and/or MAG REPLACEMENT MC SCH ×2 (08:00→20:00)
[2021-07-23] MEDS: lactobacillus rhamnosus 10,000 MMU CELLS/CAPSULE PO SCH ×2 (08:07→19:58)
[2021-07-23] MEDS: multivitamins, therapeutics tablet PO SCH (08:07)
[2021-07-23] MEDS: aspirin 81mg tab.chew PO SCH (08:07)
[2021-07-23] MEDS: venlafaxine 37.5mg tablet PO SCH ×2 (08:07→19:58)
[2021-07-23] MEDS: apixaban 5mg tablet PO SCH ×2 (08:07→19:58)
[2021-07-23] MEDS: docusate sodium 100mg/10ml UD cup PO SCH ×2 (08:07→19:58)
[2021-07-23] MEDS: thiamine 100mg tablet PO SCH ×2 (08:08→19:58)
[2021-07-23] MEDS: lansoprazole 15mg solutab PO SCH (08:08)
[2021-07-23] MEDS: amLODIPine 5mg tablet PO SCH (08:08)
[2021-07-23] MEDS: folic acid 1mg/0.2ml inj IV SCH (08:09)
[2021-07-23] MEDS: insulin Lispro (HumaLOG) vial - multi-dose SQ SCH ×3 (08:38→21:59)
[2021-07-23 11:00] VITALS: BP 122/68
[2021-07-23] MEDS: haloperidol 5mg tablet PO PRN (14:29)
--- NOTE | 2021-07-23 15:39 | NUR ---
Paged Dr. Rutledge PAGER ID: [phone] MESSAGE: Madi Sánchez RN ext [phone]. RE: Vargas Williamson. Patient's brother called, he was concern that patient has not been taking Soquel for bipolar, he was requesting to resume it so patient will not be agitated.
--- NOTE | 2021-07-23 17:30 | NUR ---
Patient refused blood sugar check
--- NOTE | 2021-07-23 18:30 | NUR ---
Problems reprioritized. Patient report given, questions answered & plan of care reviewed with Len BIRMINGHAM.
[2021-07-23 18:50] VITALS: BP 128/72
[2021-07-23] MEDS: insulin glargine (Lantus) pen - multi-dose SQ SCH (22:01)
--- NOTE | 2021-07-24 06:16 | NUR ---
Patient in room [facility]. I have received report from Len B[place]MINGH[place] and had the opportunity to ask questions and assume patient care.
--- NOTE | 2021-07-24 06:37 | NUR ---
Problems reprioritized. Patient report given, questions answered & plan of care reviewed with OSBALDO. Addendum: 07/24/21 at 0638 by Daniel Lockhart RN Amended: Links added.
[2021-07-24] MEDS: docusate sodium 100mg/10ml UD cup PO SCH (06:39)
--- NOTE | 2021-07-24 06:49 | NUR ---
Patient has been having diarrhea since last night. Another liquid yellow color stools in large amount with some undigested food noted. Cleaned patient and assisted patient back to bed. Bed alarm and tab alarm on. Patient instructed to use call light for help and not to get up without calling for help. Addendum: 07/24/21 at 0651 by Princess Dotson RN Dose of Colace for today was held
[2021-07-24 07:00] VITALS: BP 134/78
[2021-07-24] MEDS: lactobacillus rhamnosus 10,000 MMU CELLS/CAPSULE PO SCH ×2 (07:33→19:23)
[2021-07-24] MEDS: folic acid 1mg/0.2ml inj IV SCH (07:33)
[2021-07-24] MEDS: apixaban 5mg tablet PO SCH ×2 (07:33→19:23)
[2021-07-24] MEDS: lansoprazole 15mg solutab PO SCH (07:34)
[2021-07-24] MEDS: amLODIPine 5mg tablet PO SCH (07:34)
[2021-07-24] MEDS: venlafaxine 37.5mg tablet PO SCH ×2 (07:34→19:23)
[2021-07-24] MEDS: thiamine 100mg tablet PO SCH ×2 (07:34→19:23)
[2021-07-24] MEDS: multivitamins, therapeutics tablet PO SCH (07:34)
[2021-07-24] MEDS: aspirin 81mg tab.chew PO SCH (07:34)
[2021-07-24] MEDS: K and/or MAG REPLACEMENT MC SCH ×2 (08:00→19:11)
[2021-07-24] MEDS: insulin Lispro (HumaLOG) vial - multi-dose SQ SCH ×3 (08:38→21:54)
--- NOTE | 2021-07-24 09:30 | NUR ---
Paged Dr. Rutledge PAGER ID: [phone] MESSAGE: Madi Sánchez RN ext [phone]. RE: Vargas Williamson. Patient has been having diarrhea since last night 13 BMs total so far. Do you want us to send stool sample for c.diff?
[2021-07-24] MEDS: CefTRIAXone 2gm/D5W 50ml BAG 50 ML IV SCH (10:29)
[2021-07-24 11:00] VITALS: BP 117/64
[2021-07-24 12:07] LABS: BASOPHILS % (AUTO) 0.3 % (0-1); EOSINOPHILS # (AUTO) 0.2 X10'3 (0-0.9); EOSINOPHILS % (AUTO) 1.9 % (0-6); HEMATOCRIT 29.9 % (42.0-52.0); HEMOGLOBIN 9.9 g/dl (14.0-17.9); LYMPHOCYTES # (AUTO) 1.7 X10'3 (1.1-4.8); MEAN CORPUSCULAR HEMOGLOBIN 28.5 PG (27.0-31.0); MEAN CORPUSCULAR VOLUME 86.4 FL (78-98); MEAN PLATELET VOLUME 7.4 FL (7.4-10.4); MONOCYTES # (AUTO) 0.7 X10'3 (0-0.9); MONOCYTES % (AUTO) 6.7 % (2-12); NEUTROPHILS # (AUTO) 8.1 X10'3 (1.8-7.7); NEUTROPHILS % (AUTO) 75.1 % (42-75); PLATELET COUNT 337 X10'3 (140-440); RED BLOOD COUNT 3.46 X10'6 (4.70-6.10); RED CELL DISTRIBUTION WIDTH 15.6 % (11.5-14.5); WHITE BLOOD COUNT 10.7 X10'3 (4.5-11.0)
[2021-07-24 12:10] LABS: ALBUMIN 2.3 G/DL (3.4-5.0); ANION GAP 7 (8-16); BLOOD UREA NITROGEN 19 MG/DL (7-18); BUN/CREATININE RATIO 15.8 (5.4-32.0); CHLORIDE 107 MMOL/L (99-107); GLUCOSE 166 MG/DL (70-104); POTASSIUM 3.5 MMOL/L (3.5-5.1); SODIUM 136 MMOL/L (135-145); TOTAL CARBON DIOXIDE 22.4 MMOL/L (24-32); eGFR 60 ML/MIN
--- NOTE | 2021-07-24 14:44 | NUR ---
Blood sugar past noon time was 175mg/dl, by the time I realized I need to cover his blood sugar with correctional and nutritional dose it was already 14:30 pm. I decided not to cover the blood sugar at this time and will re-evaluate the blood sugar this afternoon before dinner
--- NOTE | 2021-07-24 15:34 | NUR ---
Reassessment: Pt remains confused, A/O x 2 per physical assessment though consistently documented to be eating 100% of meals w/ feeder on CCHO diet. No N/V/D noted, LBM 07/23. No nutrition intervention implemented at this time. Will continue to follow. Recommendations: 1) Continue SB6 CHO controlled diet with thin liquids per ST recs 2) Encourage PO intake and assist with meals in view of ALOC 3) Monitor need for additional protein/ONS 4) Continue routine Thiamine, Folic acid, and MVI for EtOH hx 5) Routine bowel care 6) Scaled weight this admit; weekly scaled weights thereafter 7) DM education once stable/alert/oriented, A1c 12.3%; written education with RD contact information placed in patient's chart Addendum: 07/24/21 at [address] Amended: Links added.
--- NOTE | 2021-07-24 15:45 | NUR ---
Paged Dr. Rutledge PAGER ID: [phone] MESSAGE: Surgical Princess BIRMINGHAM ext [phone]. RE: Vargas Williamson. Patient leaving tomorrow to [facility] in [place]. He is incontinent and its a long trip. Can we get order for monahan catheter and to d/c once patient arrived in the facility?
--- NOTE | 2021-07-24 18:46 | NUR ---
Problems reprioritized. Patient report given, questions answered & plan of care reviewed with Shana BIRMINGHAM.
--- NOTE | 2021-07-24 19:00 | NUR ---
Patient in room [facility]. I have received report from Princess BIRMING[place]AM and had the opportunity to ask questions and assume patient care.
[2021-07-24 20:00] VITALS: BP 116/67
[2021-07-24] MEDS: insulin glargine (Lantus) pen - multi-dose SQ SCH (21:53)
[2021-07-25] VITALS: BP 121/76
[2021-07-25 07:00] VITALS: BP 121/66
--- NOTE | 2021-07-25 07:04 | NUR ---
Problems reprioritized. Patient report given, questions answered & plan of care reviewed with Kitty BIRMINGHAM.
[2021-07-25] MEDS: aspirin 81mg tab.chew PO SCH (07:33)
[2021-07-25] MEDS: venlafaxine 37.5mg tablet PO SCH (07:33)
[2021-07-25] MEDS: lansoprazole 15mg solutab PO SCH (07:33)
[2021-07-25] MEDS: multivitamins, therapeutics tablet PO SCH (07:33)
[2021-07-25] MEDS: apixaban 5mg tablet PO SCH (07:33)
[2021-07-25] MEDS: CefTRIAXone 2gm/D5W 50ml BAG 50 ML IV SCH (07:33)
[2021-07-25] MEDS: thiamine 100mg tablet PO SCH (07:33)
[2021-07-25] MEDS: lactobacillus rhamnosus 10,000 MMU CELLS/CAPSULE PO SCH (07:33)
[2021-07-25 07:34] VITALS: BP_SYST 121
[2021-07-25] MEDS: folic acid 1mg/0.2ml inj IV SCH (07:34)
[2021-07-25] MEDS: amLODIPine 5mg tablet PO SCH (07:34)
--- NOTE | 2021-07-25 07:47 | NUR ---
PAGER ID: [phone] MESSAGE: Kitty-Surg [phone] Re: [facility]A please call re: CDIFF sample Received a call back ok to DC Cdiff orders on patient had 2 bowel movements last night and the were soft stool did not appear to look like Cdiff according to Noc shift. Dr Rutledge aware of patients blood glucose of 236 ok not to treat with insulin due to he is going to [place] today by ambulance transport don't want his blood sugar to drop
--- NOTE | 2021-07-25 08:34 | NUR ---
PAGER ID: [phone] MESSAGE: Kitty-Surg [phone] Re: [facility] transport wants a monahan in patient for transport 9 hours away
[2021-07-25] MEDS ORDERED: NOR5T PO (08:49)
[2021-07-25] MEDS ORDERED: APIX5TAB3 PO (08:49)
--- NOTE | 2021-07-25 09:00 | NUR ---
Patient report called to Lavinia RN at [facility] living all questions answered. Lavinia is aware that Mills catheter 16F was place for transport to facility and is to be removed when he arrives at there facility. PIV removed from right forearm cannula intact, Patient taken to facility via transport team supplies for incontinence and draining Mills were sent with transport team. Patient was also sent with 3 lunch sacks for transport to prevent hypoglycemia
== END 2021-07-25 09:00 | DRG 871 ==
LOC: ER 21:55 → ED HOLD 06-23 04:53 → PCU 3S 06-23 19:20 → SUR 3N 06-29 15:52
PROVIDERS: ADMIT Family Medicine; ATTEND Family Medicine
DX: A41.59 Other Gram-negative sepsis (principal); G93.41 Metabolic encephalopathy; E87.1 Hypo-osmolality and hyponatremia; N17.9 Acute kidney failure, unspecified; N39.0 Urinary tract infection, site not specified; F10.239 Alcohol dependence with withdrawal, unspecified; E87.0 Hyperosmolality and hypernatremia; I82.411 Acute embolism and thrombosis of right femoral vein; I82.431 Acute embolism and thrombosis of right popliteal vein; I82.441 Acute embolism and thrombosis of right tibial vein; E11.65 Type 2 diabetes mellitus with hyperglycemia; I87.2 Venous insufficiency (chronic) (peripheral); B96.1 Klebsiella pneumoniae [K. pneumoniae] as the cause of diseases classified elsewhere; D63.8 Anemia in other chronic diseases classified elsewhere; E86.0 Dehydration; F31.9 Bipolar disorder, unspecified; Z60.2 Problems related to living alone; M35.3 Polymyalgia rheumatica; Z20.822 Contact with and (suspected) exposure to COVID-19; E11.22 Type 2 diabetes mellitus with diabetic chronic kidney disease; I12.9 Hypertensive chronic kidney disease with stage 1 through stage 4 chronic kidney disease, or unspecified chronic kidney disease; G47.00 Insomnia, unspecified; N18.9 Chronic kidney disease, unspecified; R65.20 Severe sepsis without septic shock; T43.595A Adverse effect of other antipsychotics and neuroleptics, initial encounter; G89.29 Other chronic pain; M54.9 Dorsalgia, unspecified; R19.7 Diarrhea, unspecified; R41.3 Other amnesia; Z79.01 Long term (current) use of anticoagulants; Z79.84 Long term (current) use of oral hypoglycemic drugs; Z88.8 Allergy status to other drugs, medicaments and biological substances; Z79.899 Other long term (current) drug therapy; Z79.82 Long term (current) use of aspirin; Z78.1 Physical restraint status; E83.52 Hypercalcemia; E83.41 Hypermagnesemia
CPT/HCPCS: 36415; 70450; 71045; 71250; 74176; 76770; 76937; 80048; 80053; 80061; 80178; 80305; 80320; 81001; 82140; 82550; 82570; 82948; 83036; 83605; 83690; 83735; 83874; 83935; 84100; 84133; 84145; 84156; 84300; 84443; 84484; 85007; 85025; 85610; 85730; 86140; 87040; 87077; 87081; 87088; 87186; 87207; 87635; 92508; 92616; 93005; 93970; 97110; 97112; 97116; 97161; 97530; 97535; 99285; C9803; G0378; J0696; J1630; J1644; J1815; J2060; J2270; J3411; J3480; J3490; J7030; J7070